=== PATIENT | female | born 1955 | race Caucasian/White ===

== ENCOUNTER 2025-02-02 22:02 | Inpatient (IN) ==
--- NOTE | 2025-02-02 23:20 | Emergency Department Note ---
Impression & Plan Aspiration into respiratory tract, Cough, Cerebral palsy ED Provider Note CHIEF COMPLAINT: Possible aspiration, shortness of breath HISTORY OF PRESENT ILLNESS: This 69-year-old female patient with past medical history of cerebral palsy presents to the emergency department With complaints of coughing up white sputum per fci staff at the [facility]. The patient suffers from cerebral palsy and they are concerned that she may have aspirated. There is no clear history of vomiting. Patient is nonverbal and much of the report is obtained from nursing staff through EMS. REVIEW OF SYSTEMS: Unable to obtain a full review of systems secondary to the patient's mental status/Nonverbal state. ALLERGIES: see below MEDICATIONS: see below PMH: see below SOCIAL HISTORY: see below DDx: Pneumonia, aspiration, congestive heart failure, cardiac arrhythmia, viral syndrome among others. PHYSICAL EXAM: Vital signs reviewed. General: Chronically ill-appearing 69-year-old female HEENT: No scleral icterus, PERRLA, neck supple. Atraumatic. on nasal cannula oxygen. Drooling Cardiovascular: Regular rate and rhythm, no extra sounds. Pulmonary: Clear to auscultation bilaterally, normal work of breathing. Abdomen: Soft, nontender, nondistended, positive bowel sounds. Musculoskeletal: Atraumatic, no peripheral edema. Neurologic: Patient awake alert and oriented x 3, speech is clear Skin: Warm, dry, no rash EMERGENCY DEPARTMENT COURSE/MDM: this patient was evaluated and appeared to be in no significant distress. She was requiring some nasal cannula oxygen to maintain her oxygen saturations. She is nonverbal and additional history taking is difficult. Records sent with the patient were reviewed. IV access was obtained and laboratory work was drawn. Patient was placed on the school bus monitor noted to be in normal sinus rhythm. Chest x-ray reveals no evidence of acute cardiopulmonary process. Patient has noted to have an elevated WBC. Blood cultures were obtained and patient was hydrated with normal saline solution, given IV Zosyn as she has possibly aspirated and does reside in a fci. Case was discussed with the hospitalist service who will evaluate the patient for admission and further management. MONITORING: An order for cardiac monitoring was placed and the patient is noted to be in a normal sinus rhythm at 62 beats per minute. RADIOLOGY: to my interpretation reveals no evidence of acute cardiopulmonary process. EKG: To my interpretation reveals normal sinus rhythm at 86 bpm. QTc of 461. Normal ST segments. No PVC, no PAC. DISPOSITION: admission Past Med/Surg History Problem List (Updated 02/05/25 @ 02:20 by Izabela Ford MD) Cerebral palsy (Acute) Cough (Acute) Aspiration into respiratory tract (Acute) Sepsis Cerebral palsy (Chronic) Bilateral knee pain (Acute) Social History Smoking Status: Unknown if ever smoked Hx Alcohol Use: No (UNKNOWN) Hx Substance Use: No (UNKNOWN) Preferred Language: Hungarian Communication Ability: Effective Workforce Management Coordinator Required: No Beliefs That Will Affect Care: None Current Living Situation: Group Home Feels Safe at Home: Yes Safety Concerns: Feels Safe At This Time Allergies Allergies Allergy/AdvReac Type Severity Reaction Status Date / Time banana Allergy Unknown ON EMBASSY Verified 02/03/25 00:25 OF [facility] MED LIST metformin Allergy Unknown ON EMBASSY Verified 02/03/25 00:25 OF [facility] MED LIST Sulfa (Sulfonamide Allergy Unknown ON EMBASSY Verified 02/03/25 00:25 Antibiotics) OF HEARTHSIDE MED LIST Home Meds Home Medications Medication Instructions Recorded Confirmed acetaminophen 325 mg tablet 650 mg PO Q4H PRN TEMP >101F 02/03/25 02/03/25 (Tylenol) acetaminophen 325 mg tablet 650 mg PO Q6H PRN Pain (Scale 02/03/25 02/03/25 (Tylenol) Score 1-3) aspirin 81 mg tablet,delayed 81 mg PO QAM 02/03/25 02/03/25 release atorvastatin 40 mg tablet 40 mg PO HS 02/03/25 02/03/25 baclofen 10 mg tablet 10 mg PO .BID @ 1200 & 2000 02/03/25 02/03/25 baclofen 10 mg tablet 20 mg PO QAM 02/03/25 02/03/25 bupropion HCl 75 mg tablet 75 mg PO QAM 02/03/25 02/03/25 cholecalciferol (vitamin D3) 25 50 mcg PO DAILY 02/03/25 02/03/25 mcg (1,000 unit) capsule (Vitamin D3) hydroxyzine HCl 10 mg tablet 10 mg PO QAM 02/03/25 02/03/25 levothyroxine 50 mcg tablet 50 mcg PO DAILYBB 02/03/25 02/03/25 lisinopril 5 mg tablet 5 mg PO QAM 02/03/25 02/03/25 magnesium oxide 400 mg PO QAM 02/03/25 02/03/25 melatonin 3 mg tablet 3 mg PO HS 02/03/25 02/03/25 mirtazapine 7.5 mg tablet 7.5 mg PO 02/03/25 02/03/25 omeprazole 20 mg tablet,delayed 20 mg PO QAM 02/03/25 02/03/25 release polyethylene glycol 3350 17 17 g PO DAILY PRN Constipation 02/03/25 02/03/25 gram/dose oral powder (Miralax) sertraline 100 mg tablet (Zoloft) 200 mg PO HS 02/03/25 02/03/25 tamsulosin 0.4 mg capsule (Flomax) 0.4 mg PO QAM 02/03/25 02/03/25 tramadol 50 mg tablet 50 mg PO Q6H PRN Pain (Scale Score 02/03/25 02/03/25 4-10) Results & Data (ED) Vital Signs Vital Signs - 24 hr 02/02/25 22:14 02/02/25 22:38 02/02/25 22:38 Temperature 37.3 C Temperature Source Axillary Pulse Rate 96 H 111 H Respiratory Rate 20 Respiratory Effort / Characteristics Non-Labored Spontaneous Non-Labored Spontaneous Respiratory Depth Normal Normal Respiratory Pattern Regular Regular Blood Pressure 123/87 Blood Pressure Mean 99 Blood Pressure Position Sitting Pulse Oximetry 94 Oxygen Delivery Method Nasal Cannula Nasal Cannula Oxygen Flow Rate 6 6 Sepsis Recent Fever Within 48 Hours No Sepsis New/Unexplained Change in Mental Status No Sepsis Action Taken by Nursing No Action Required Oxygen Flow Rate - Titration 02/02/25 22:38 Temperature Temperature Source Pulse Rate Respiratory Rate Respiratory Effort / Characteristics Respiratory Depth Respiratory Pattern Blood Pressure Blood Pressure Mean Blood Pressure Position Pulse Oximetry Oxygen Delivery Method Nasal Cannula Oxygen Flow Rate Sepsis Recent Fever Within 48 Hours Sepsis New/Unexplained Change in Mental Status Sepsis Action Taken by Nursing Oxygen Flow Rate - Titration 6 Home Medications Current Medication List: was personally reviewed by me Laboratory Data Attestation: I reviewed the patient's lab results. 02/04/25 12:07 02/04/25 08:33 Lab Results 02/02/25 02/02/25 02/03/25 Range/Units 22:11 23:43 01:00 WBC 12.05 H (4.8-10.8) K/ul RBC 4.85 (4.20-5.40) M/uL Hgb 13.0 (12.0-16.0) g/dl Hct 41.8 (37.0-47.0) % MCV 86.2 (80.0-100.0) fL MCH 26.8 (25.0-34.0) pg MCHC 31.1 L (32.0-36.0) g/dL RDW Std Deviation 46.8 H (36.4-46.3) fL RDW Coeff of Silvia 14.8 H (11.5-14.5) % Plt Count (130-400) K/uL MPV Not Reportable Immature Gran % (Auto) 0.7 % Neut % (Auto) 86.5 % Lymph % (Auto) 7.1 % Summers % (Auto) 4.1 % Eos % (Auto) 1.2 % Baso % (Auto) 0.4 % Neut # (Auto) 10.41 H (1.40-6.50) K/uL Lymph # (Auto) 0.86 L (1.20-3.40) K/uL Summers # (Auto) 0.50 (0.11-0.59) K/uL Eos # (Auto) 0.14 (0.00-0.50) K/uL Baso # (Auto) 0.05 (0.00-0.20) K/uL Immature Gran # (Auto) 0.09 (0.01-0.20) K/uL Platelet Estimate Decreased L (Normal) RBC Morphology Unremarkable Sodium 141 (136-145) mmol/L Potassium 5.3 H (3.5-5.1) mmol/L Chloride 106 (98-107) mmol/L Carbon Dioxide 22 (21-32) mmol/L Anion Gap 13 H (3-11) BUN 67 H (6-23) mg/dl Creatinine 1.76 H (0.6-1.2) mg/dl Est Cr Clr Drug Dosing Not Reportable eGFR 31.14 BUN/Creatinine Ratio 38.1 H (10-20) Glucose 153 H (70-99(Fasting)) mg/dl Calcium 9.9 (8.6-10.3) mg/dl Magnesium 2.4 (1.7-2.4) mg/dl Total Bilirubin 0.5 (0.2-1.0) mg/dl AST 58 H (13-39) U/L ALT 53 H (7-52) U/L Alkaline Phosphatase 92 (34-104) U/L Troponin I High Sens 12.6 (0-14) pg/ml Total Protein 8.1 (6.0-8.3) gm/dl Albumin 4.2 (3.4-5.0) gm/dl Globulin 3.9 (2.5-4.0) gm/dl Albumin/Globulin Ratio 1.1 (0.9-2) Procalcitonin 0.16 (0-0.5) ng/ml Urine Color Yellow Urine Appearance Cloudy A (Clear) Urine pH 5.0 (4.5-7.5) Ur Specific [place] 1.015 (1.000-1.030) Urine Protein Negative (Negative) Urine Glucose (UA) Negative (Negative) Urine Ketones Negative (Negative) Urine Blood Negative (Negative) Urine Nitrite Negative (Negative) Urine Bilirubin Negative (Negative) Urine Urobilinogen Negative (Negative) Ur Leukocyte Esterase 3+ H (Negative) Urine WBC (Auto) 0-5 (0-5) /hpf Urine RBC (Auto) 0-2 (0-2) /hpf U Hyaline Cast (Auto) 0-2 (0-2) /lpf U Epithel Cells (Auto) 0-2 (0-2) /hpf Urine Bacteria (Auto) 3+ H (None Seen) Nasal Screen MRSA (PCR) (Negative) Adenovirus (PCR) Not Detected (NotDetected) B. pertussis DNA (PCR) Not Detected (NotDetected) B.parapertussis DNA PCR Not Detected (NotDetected) C. pneumoniae DNA (PCR) Not Detected (NotDetected) Coronavirus OC43 (PCR) Not Detected (NotDetected) Coronavirus HKU1 (PCR) Not Detected (NotDetected) Coronavirus 229E (PCR) Not Detected (NotDetected) SARS-CoV-2 (PCR) Not Detected (NotDetected) Coronavirus NL63 (PCR) Not Detected (NotDetected) Human Metapneumovir PCR Not Detected (NotDetected) Influenza Type A (PCR) Not Detected (NotDetected) Influenza Type B (PCR) Not Detected (NotDetected) M. pneumoniae (PCR) Not Detected (NotDetected) Parainfluenza 1 (PCR) Not Detected (NotDetected) Parainfluenza 2 (PCR) Not Detected (NotDetected) Parainfluenza 3 (PCR) Not Detected (NotDetected) Parainfluenza 4 (PCR) Not Detected (NotDetected) RSV (PCR) Not Detected (NotDetected) Entero/Rhino (PCR) Not Detected (NotDetected) 02/03/25 Range/Units 01:20 WBC (4.8-10.8) K/ul RBC (4.20-5.40) M/uL Hgb (12.0-16.0) g/dl Hct (37.0-47.0) % MCV (80.0-100.0) fL MCH (25.0-34.0) pg MCHC (32.0-36.0) g/dL RDW Std Deviation (36.4-46.3) fL RDW Coeff of Silvia (11.5-14.5) % Plt Count (130-400) K/uL MPV Immature Gran % (Auto) % Neut % (Auto) % Lymph % (Auto) % Summers % (Auto) % Eos % (Auto) % Baso % (Auto) % Neut # (Auto) (1.40-6.50) K/uL Lymph # (Auto) (1.20-3.40) K/uL Summers # (Auto) (0.11-0.59) K/uL Eos # (Auto) (0.00-0.50) K/uL Baso # (Auto) (0.00-0.20) K/uL Immature Gran # (Auto) (0.01-0.20) K/uL Platelet Estimate (Normal) RBC Morphology Sodium (136-145) mmol/L Potassium (3.5-5.1) mmol/L Chloride (98-107) mmol/L Carbon Dioxide (21-32) mmol/L Anion Gap (3-11) BUN (6-23) mg/dl Creatinine (0.6-1.2) mg/dl Est Cr Clr Drug Dosing eGFR BUN/Creatinine Ratio (10-20) Glucose (70-99(Fasting)) mg/dl Calcium (8.6-10.3) mg/dl Magnesium (1.7-2.4) mg/dl Total Bilirubin (0.2-1.0) mg/dl AST (13-39) U/L ALT (7-52) U/L Alkaline Phosphatase (34-104) U/L Troponin I High Sens (0-14) pg/ml Total Protein (6.0-8.3) gm/dl Albumin (3.4-5.0) gm/dl Globulin (2.5-4.0) gm/dl Albumin/Globulin Ratio (0.9-2) Procalcitonin (0-0.5) ng/ml Urine Color Urine Appearance (Clear) Urine pH (4.5-7.5) Ur Specific [place] (1.000-1.030) Urine Protein (Negative) Urine Glucose (UA) (Negative) Urine Ketones (Negative) Urine Blood (Negative) Urine Nitrite (Negative) Urine Bilirubin (Negative) Urine Urobilinogen (Negative) Ur Leukocyte Esterase (Negative) Urine WBC (Auto) (0-5) /hpf Urine RBC (Auto) (0-2) /hpf U Hyaline Cast (Auto) (0-2) /lpf U Epithel Cells (Auto) (0-2) /hpf Urine Bacteria (Auto) (None Seen) Nasal Screen MRSA (PCR) Negative (Negative) Adenovirus (PCR) (NotDetected) B. pertussis DNA (PCR) (NotDetected) B.parapertussis DNA PCR (NotDetected) C. pneumoniae DNA (PCR) (NotDetected) Coronavirus OC43 (PCR) (NotDetected) Coronavirus HKU1 (PCR) (NotDetected) Coronavirus 229E (PCR) (NotDetected) SARS-CoV-2 (PCR) (NotDetected) Coronavirus NL63 (PCR) (NotDetected) Human Metapneumovir PCR (NotDetected) Influenza Type A (PCR) (NotDetected) Influenza Type B (PCR) (NotDetected) M. pneumoniae (PCR) (NotDetected) Parainfluenza 1 (PCR) (NotDetected) Parainfluenza 2 (PCR) (NotDetected) Parainfluenza 3 (PCR) (NotDetected) Parainfluenza 4 (PCR) (NotDetected) RSV (PCR) (NotDetected) Entero/Rhino (PCR) (NotDetected) Administered Medications Acetaminophen (Acetaminophen 500 Mg Tab) 500 mg PO Q6H PRN PRN Reason: fever/pain Stop: 03/05/25 01:50 Last Admin: 02/04/25 22:37 Dose: 500 mg Documented By: Admin: 02/04/25 08:06 Dose: 500 mg Documented By: Admin: 02/03/25 18:45 Dose: 500 mg Documented By: [facility] Admin: 02/03/25 10:27 Dose: 500 mg Documented By: AMS Aspirin (Aspirin 81 Mg Ectab) 81 mg PO [facility] Stop: 03/05/25 08:59 Last Admin: 02/04/25 08:07 Dose: 81 mg Documented By: Admin: 02/03/25 08:04 Dose: 81 mg Documented By: AMS Heparin Sodium (Porcine) (Heparin Sod 5,000 Unit/0.5 Ml Vial) 5,000 units SQ Q8 [facility] Stop: 03/05/25 05:59 Last Admin: 02/04/25 22:37 Dose: 5,000 units Documented By: [facility] Admin: 02/04/25 13:25 Dose: 5,000 units Documented By: Admin: 02/04/25 06:02 Dose: 5,000 units Documented By: [facility] Admin: 02/03/25 20:53 Dose: 5,000 units Documented By: [facility] Admin: 02/03/25 13:40 Dose: 5,000 units Documented By: [facility] Admin: 02/03/25 06:23 Dose: 5,000 units Documented By: CEZAR Hydroxyzine HCl (Hydroxyzine Hcl 10 Mg Tab) 10 mg PO [facility] Stop: 03/06/25 08:59 Last Admin: 02/04/25 09:27 Dose: 10 mg Documented By: MTM Ceftriaxone Sodium (Rocephin) 2,000 mg in 50 mls @ 100 mls/hr IV Q24H [facility] Stop: 02/18/25 12:59 Last Infusion: 02/04/25 14:36 Dose: Infused Documented By: Admin: 02/04/25 13:21 Dose: 100 mls/hr Documented By: MTMildred Insulin Aspart (Insulin Aspart Per Unit Charge) 0 units SC [facility] Stop: 03/05/25 04:55 Last Admin: 02/04/25 20:12 Dose: Not Given Documented By: Admin: 02/04/25 17:36 Dose: Not Given Documented By: Admin: 02/04/25 13:20 Dose: Not Given Documented By: Admin: 02/04/25 09:26 Dose: Not Given Documented By: Admin: 02/03/25 20:52 Dose: Not Given Documented By: Admin: 02/03/25 18:39 Dose: Not Given Documented By: Admin: 02/03/25 13:21 Dose: Not Given Documented By: Admin: 02/03/25 09:42 Dose: 1 units Documented By: JASEN Co-signed By: REMINGTON Admin: 02/03/25 06:39 Dose: Not Given Documented By: CEZAR Co-signed By: BRANDY Lactobacillus Acidophilus (Advanced Probiotic 625 Mg Capsule) 1,250 mg PO DAILY JEAN-PAUL Stop: 03/06/25 08:59 Last Admin: 02/04/25 09:27 Dose: 1,250 mg Documented By: AMI Levothyroxine Sodium (Levothyroxine Sodium 50 Mcg Tablet) 50 mcg PO DAILYBB [facility] Stop: 03/05/25 06:29 Last Admin: 02/04/25 06:02 Dose: 50 mcg Documented By: Admin: 02/03/25 06:23 Dose: 50 mcg Documented By: CEZAR Magnesium Oxide (Magnesium Oxide 400 Mg Tab) [facility] [place] [place] Stop: 03/06/25 08:59 Last Admin: 02/04/25 08:08 Dose: 400 mg Documented By: MTMildred Melatonin (Melatonin 3 Mg Tab) 3 mg PO HS PRN PRN Reason: Sleep Stop: 03/07/25 01:38 Last Admin: 02/05/25 01:44 Dose: 3 mg Documented By: EVELYN Miscellaneous (Carbohydrates For Hypoglycemia ) 15 - 30 gm PO UD PRN PRN Reason: Hypoglycemia Protocol Stop: 03/05/25 04:55 Last Admin: 02/04/25 08:25 Dose: 15 gm Documented By: MTMildred Pantoprazole Sodium (Pantoprazole 40 Mg Tab) [facility] [place] Stop: 03/05/25 08:59 Last Admin: 02/04/25 08:08 Dose: 40 mg Documented By: Admin: 02/03/25 08:04 Dose: 40 mg Documented By: JASEN Tamsulosin HCl (Tamsulosin Hcl 0.4 Mg Cap) 0.4 mg PO [facility] Stop: 03/06/25 08:59 Last Admin: 02/04/25 09:27 Dose: 0.4 mg Documented By: AMI Tramadol HCl (Tramadol Hcl 50 Mg Tablet) 50 mg PO Q6H PRN PRN Reason: Pain (Scale Score 4-10) Stop: 03/05/25 11:38 Last Admin: 02/04/25 18:56 Dose: 50 mg Documented By: Admin: 02/04/25 06:24 Dose: 50 mg Documented By: Admin: 02/03/25 20:53 Dose: 50 mg Documented By: Admin: 02/03/25 14:01 Dose: 50 mg Documented By: JASEN Discontinued Medications Bupropion HCl (Bupropion Hcl 75 Mg Tablet) 75 mg PO [facility] Stop: 03/05/25 08:59 Last Admin: 02/03/25 08:03 Dose: 75 mg Documented By: JASEN Sodium Chloride (Nss) 500 mls @ 999 mls/hr IV .Q31M ONE Stop: 02/03/25 00:01 Last Infusion: 02/03/25 01:25 Dose: Infused Documented By: Admin: 02/02/25 23:48 Dose: 999 mls/hr Documented By: Sodium Chloride (Nss) 1,000 mls @ 150 mls/hr IV .Q6H40M [facility] Stop: 02/04/25 00:14 Last Admin: 02/03/25 02:21 Dose: Not Given Documented By: Piperacillin Sod/Tazobactam Sod (Zosyn) 4.5 gm in 100 mls @ 200 mls/hr IV NOW ONE; Protocol Stop: 02/03/25 01:19 Last Infusion: 02/03/25 02:56 Dose: Infused Documented By: Admin: 02/03/25 02:14 Dose: 200 mls/hr Documented By: Sodium Chloride (Nss) 1,000 mls @ 100 mls/hr IV .Q10H [facility] Stop: 02/03/25 11:47 Last Infusion: 02/03/25 12:04 Dose: Infused Documented By: Admin: 02/03/25 02:14 Dose: 100 mls/hr Documented By: Ampicillin Sodium/Sulbactam Sodium (Unasyn) 3,000 mg in 100 mls @ 200 mls/hr IV Q6H [facility]AN-PAUL Stop: 02/08/25 07:59 Last Infusion: 02/04/25 09:27 Dose: Infused Documented By: Admin: 02/04/25 08:08 Dose: 200 mls/hr Documented By: Infusion: 02/04/25 02:32 Dose: Infused Documented By: Admin: 02/04/25 02:02 Dose: 200 mls/hr Documented By: Infusion: 02/03/25 21:05 Dose: Infused Documented By: Admin: 02/03/25 20:35 Dose: 200 mls/hr Documented By: Infusion: 02/03/25 14:00 Dose: Infused Documented By: Admin: 02/03/25 13:28 Dose: 200 mls/hr Documented By: Infusion: 02/03/25 08:31 Dose: Infused Documented By: Admin: 02/03/25 07:51 Dose: 200 mls/hr Documented By: AMS Sodium Chloride (1/2 Nss) 1,000 mls @ 60 mls/hr IV .[id number] [facility] Stop: 02/04/25 06:54 Last Infusion: 02/04/25 09:26 Dose: Infused Documented By: Admin: 02/03/25 14:30 Dose: 60 mls/hr Documented By: AMS Discharge Plan Visit Data Chief Complaint: Shortness of Breath/Dyspnea Stated Complaint: SOB ED Provider: Izabela Ford Discharge Problem: Aspiration into respiratory tract, Cough, Cerebral palsy Patient Disposition: Admitted As Inpatient Discharge Instructions Interventions: ED Discharge Assessment Last Done: 02/03/25 04:46 Discharge Problem: Aspiration into respiratory tract Qualifiers: Encounter type: initial encounter Qualified Code(s): T17.908A - Unspecified foreign body in respiratory tract, part unspecified causing other injury, initial encounter Cough Qualifiers: Cough type: acute Qualified Code(s): R05.1 - Acute cough Cerebral palsy Qualifiers: Cerebral palsy type: unspecified type Qualified Code(s): G80.9 - Cerebral palsy, unspecified
[2025-02-02] MEDS: SODIUM CHLORIDE 0.9% 500 ML IV ONE (23:48)
[2025-02-02 23:57] LABS: Alanine Aminotransferase 53 U/L (7-52); Albumin Globulin Ratio 1.1 (0.9-2); Albumin Level 4.2 gm/dl (3.4-5.0); Alkaline Phosphatase 92 U/L (34-104); Anion Gap 13 (3-11); Aspartate Aminotransferase 58 U/L (13-39); BUN Creatinine Ratio 38.1 (10-20); Bilirubin,Total 0.5 mg/dl (0.2-1.0); Blood Urea Nitrogen 67 mg/dl (6-23); Calcium 9.9 mg/dl (8.6-10.3); Carbon Dioxide 22 mmol/L (21-32); Chloride 106 mmol/L (98-107); Globulin 3.9 gm/dl (2.5-4.0); Glucose 153 mg/dl (70-99(Fasting)); Magnesium 2.4 mg/dl (1.7-2.4); Potassium 5.3 mmol/L (3.5-5.1); Sodium 141 mmol/L (136-145); Total Protein 8.1 gm/dl (6.0-8.3)
[2025-02-03 00:04] LABS: Troponin I High Sensitivity 12.6 pg/ml (0-14)
[2025-02-03 00:38] LABS: Hematocrit (blood only) 41.8 % (37.0-47.0); Mean Corpuscular Hemoglobin 26.8 pg (25.0-34.0); Mean Corpuscular Hgb Conc 31.1 g/dL (32.0-36.0); Mean Corpuscular Volume 86.2 fL (80.0-100.0); RDW Coefficient of Variation 14.8 % (11.5-14.5); RDW Standard Deviation 46.8 fL (36.4-46.3); Red Blood Count 4.85 M/uL (4.20-5.40); White Blood Count 12.05 K/ul (4.8-10.8)
[2025-02-03 00:47] LABS: Basophils # (auto) 0.05 K/uL (0.00-0.20); Basophils % (auto) 0.4 %; Eosinophils # (auto) 0.14 K/uL (0.00-0.50); Eosinophils % (auto) 1.2 %; Immature Granulocytes # (auto) 0.09 K/uL (0.01-0.20); Immature Granulocytes % (auto) 0.7 %; Lymphocytes # (auto) 0.86 K/uL (1.20-3.40); Lymphocytes % (auto) 7.1 %; Monocytes % (auto) 4.1 %; Neutrophils # (auto) 10.41 K/uL (1.40-6.50); Neutrophils % (auto) 86.5 %; Platelet Estimate Decreased (Normal); RBC Morphology Unremarkable
[2025-02-03 00:52] LABS: Adenovirus PCR Not Detected (NotDetected); Bordetella parapertussis PCR Not Detected (NotDetected); Bordetella pertussis PCR Not Detected (NotDetected); Chlamydia pneumoniae PCR Not Detected (NotDetected); Coronavirus 229E PCR Not Detected (NotDetected); Coronavirus CoV-2 (COVID19)PCR Not Detected (NotDetected); Coronavirus HKU1 PCR Not Detected (NotDetected); Coronavirus NL63 PCR Not Detected (NotDetected); Coronavirus OC43PCR Not Detected (NotDetected); Human Metapneumovirus PCR Not Detected (NotDetected); Influenza A PCR Not Detected (NotDetected); Influenza B PCR Not Detected (NotDetected); Mycoplasma pneumoniae PCR Not Detected (NotDetected); Parainfluenza Virus 1 PCR Not Detected (NotDetected); Parainfluenza Virus 2 PCR Not Detected (NotDetected); Parainfluenza Virus 3 PCR Not Detected (NotDetected); Parainfluenza Virus 4 PCR Not Detected (NotDetected); Respiratory Syncytial VirusPCR Not Detected (NotDetected); Rhinovirus/Enterovirus PCR Not Detected (NotDetected)
[2025-02-03 01:20] LABS: Appearance Urine Cloudy (Clear); Bacteria Urine Automated 3+ (None Seen); Bilirubin Urine Negative (Negative); Blood Urine Negative (Negative); Cast Urine Automated 0-2 /lpf (0-2); Color Urine Yellow; Epithelial Cell Urine Auto 0-2 /hpf (0-2); Glucose Urine UA Negative (Negative); Ketones Urine Negative (Negative); Leukocyte Esterase Urine 3+ (Negative); Nitrite Urine Negative (Negative); Protein Urine Negative (Negative); RBC Urine Automated 0-2 /hpf (0-2); Specific Gravity Urine 1.015 (1.000-1.030); Urobilinogen Urine Negative (Negative); WBC Urine Automated 0-5 /hpf (0-5)
--- NOTE | 2025-02-03 01:27 | XRay Report ---
Exam(s): XR CXR 1 VIEW EXAM: XR Chest, 1 View CLINICAL HISTORY: Reason for exam: Dyspnea. TECHNIQUE: Frontal view of the chest. COMPARISON: No relevant prior studies available. FINDINGS: Lungs: No consolidation. Pleural space: No pleural effusion or pneumothorax. Heart: No cardiomegaly or pulmonary vascular congestion. Bones/joints: No acute fracture. No dislocation. IMPRESSION: No evidence of acute cardiopulmonary disease. Electronically signed by: Greg Tellez M.D. 02/03/25 01:26 AM
--- NOTE | 2025-02-03 01:44 | History & Physical Report ---
Date of Service February 03, 2025 Assessment & Plan (1) Sepsis: Plan: Severe sepsis SIRS plus hypoxemic respiratory failure plus ARF plus encephalopathy Possible aspiration pneumonitis hypertension, stable hyperlipidemia, on statin Rx DM2 on oral medications, well-controlled as of recent hemoglobin A1c of 5.08 June 2024 hypothyroidism, TSH from last year slightly elevated at 5 anxiety/mood disorder hx cerebral palsy ambulatory dysfunction as per records Admit to med/tele CS, Unasyn Aspiration precautions, [employer] eval Baseline UA, monitor creatinine response to IVF Hold lisinopril for now Hold neuropsychotropic medications until mentation back to baseline Update TSH ISS BG goal 110-140, update hemoglobin A1c DVT prophylaxis. Heparin subcu DNR as per directives (POLST form indicates DNR/comfort measures; antibiotic trial acceptable as per document) Total critical time was 40 minutes. Text document was generated using [employer] voice recognition software. It may contain grammatical or spelling errors. Kindly contact undersigned for clarification of any documentation item in question. History of Present Illness Chief Complaint: Low oxygen, possible aspiration as per records Primary Care Provider: Dr. Dawson Higgins History obtained from patient and records. Limited history from patient secondary to disorientation. Medical history significant for hypertension, hyperlipidemia, DM2 on oral medications, hypothyroidism, anxiety/mood disorder, cerebral palsy, urinary retention, ambulatory dysfunction as per records. Patient admitted at [facility] from August 30 to September 04, 2024 for traumatic left patellar/tibia fracture and UTI. Patient discharged to [facility] for a month prior to admission at [facility] last October 2024. Return to patient's home deemed unsafe due to disability. Patient also has cerebral palsy as per report. Patient found to be coughing out white phlegm yesterday. Concern for aspiration as per [facility] staff. O2 sats 80s upon EMS arrival. Patient noted to have noisy respiration. Multiple suctioning attempts prior to ED transport. Zosyn administered at the ER. Patient unable to reply to questions regarding chest pain, SOB, abdominal pain. Medical History as above Surgical History : BTL, leg surgeries Family History : Heart disease, brain tumor Personal/Social history : Non-smoker, no EtOH intake, [facility] resident Allergies Allergy/AdvReac Type Severity Reaction Status Date / Time banana Allergy Unknown ON [facility] Verified 02/03/25 00:25 OF [facility] metformin Allergy Unknown ON [facility] Verified [facility]/03[facility]25 00[facility] Sulfa (Sulfonamide Allergy Unknown ON EMBASSY Verified 02/03/25 00:25 Antibiotics) OF [facility] MED LIST Home Medications Medication Instructions Recorded Confirmed Type acetaminophen 325 mg tablet 650 mg PO Q4H PRN TEMP >101F 02/03/25 02/03/25 History (Tylenol) acetaminophen 325 mg tablet 650 mg PO Q6H PRN Pain (Scale 02/03/25 02/03/25 Hi story (Tylenol) Score 1-3) aspirin 81 mg tablet,delayed 81 mg PO QAM 02/03/25 02/03/25 History release atorvastatin 40 mg tablet 40 mg PO HS 02/03/25 02/03/25 History baclofen 10 mg tablet 10 mg PO .BID @ 1200 & 2000 02/03/25 02/03/25 History baclofen 10 mg tablet 20 mg PO [facility] 02/03/25 02/03/25 History bupropion HCl 75 mg tablet 75 mg PO QA 02/03/25 02/03/25 History cholecalciferol (vitamin D3) 25 50 mcg PO DAILY 02/03/25 02/03/25 History mcg (1,000 unit) capsule (Vitamin D3) hydroxyzine HCl 10 mg tablet 10 mg PO QA 02/03/25 02/03/25 History levothyroxine 50 mcg tablet 50 mcg PO DAILYBB 02/03/25 02/03/25 History lisinopril 5 mg tablet 5 mg PO [facility] 02/03/25 02/03/25 History magnesium oxide 400 mg PO QA 02/03/25 02/03/25 History melatonin 3 mg tablet 3 mg PO 02/03/25 02/03/25 History mirtazapine 7.5 mg tablet 7.5 mg PO HS 02/03/25 02/03/25 History omeprazole 20 mg tablet,delayed 20 mg PO QA 02/03/25 02/03/25 History release polyethylene glycol 3350 17 17 g PO DAILY PRN Constipation 02/03/25 02/03/25 History gram/dose oral powder (Miralax) sertraline 100 mg tablet (Zoloft) 200 mg PO HS 02/03/25 02/03/25 History tamsulosin 0.4 mg capsule (Flomax) 0.4 mg PO QAM 02/03/25 02/03/25 History tramadol 50 mg tablet 50 mg PO Q6H PRN Pain (Scale Score 02/03/25 02/03/25 History 4-10) Past Med/Surg History Problem List (Updated 02/03/25 @ 09:52 by Gucci Mullen MD) Sepsis Cerebral palsy (Chronic) Bilateral knee pain (Acute) Social History Smoking Status: Unknown if ever smoked Hx Alcohol Use: No (UNKNOWN) Hx Substance Use: No (UNKNOWN) Preferred Language: Surinamese Communication Ability: Effective Engine Oiler Required: No Beliefs That Will Affect Care: None Current Living Situation: Long Term Feels Safe at Home: Yes Safety Concerns: Feels Safe At This Time Review of Systems Review of Systems: Could not be reliably obtained secondary to disorientation Physical Exam Physical Exam: GENERAL: Disoriented, no respiratory distress SKIN: Normal color, warm HEENT: Obert palpebral conjunctivae, no ptosis, dry buccal mucosa, nasal cannula in place NECK : Supple, no tenderness CHEST : Decreased breath sounds, scattered expiratory wheezes, no tenderness HEART : RRR, no obvious murmurs ABDOMEN: Some distention, nontender EXTREMITIES : Chronic UE contractures, minimal LE swelling without tenderness, palpable pulses NEUROLOGIC : Disoriented, lateral deviation left eye (? chronicity), no facial asymmetry, gait and stance not assessed Results & Data Results & Data Vital Signs (Past 12 Hours) Vital Signs Temp Pulse Pulse Resp BP BP Pulse Ox 02/03/25 01:17 62 18 149/88 H 100 02/02/25 23:42 100 02/02/25 23:39 77 20 137/82 100 02/02/25 22:38 02/02/25 22:38 37.3 C 111 H 20 123/87 94 02/02/25 22:38 02/02/25 22:14 96 H O2 Del Method O2 Flow Rate 02/03/25 01:17 Nasal Cannula 5 02/02/25 23:42 Nasal Cannula 6 02/02/25 23:39 Nasal Cannula 6 02/02/25 22:38 Nasal Cannula 02/02/25 22:38 Nasal Cannula 6 02/02/25 22:38 Nasal Cannula 6 02/02/25 22:14 Laboratory Results Laboratory Results WBC 12.05 K/ul (4.8-10.8) H 02/02/25 22:11 RBC 4.85 M/uL (4.20-5.40) 02/02/25 22:11 Hgb 13.0 g/dl (12.0-16.0) 02/02/25 22:11 Hct 41.8 % (37.0-47.0) 02/02/25 22:11 MCV 86.2 fL (80.0-100.0) 02/02/25 22:11 MCH 26.8 pg (25.0-34.0) 02/02/25 22:11 MCHC 31.1 g/dL (32.0-36.0) L 02/02/25 22:11 RDW Std Deviation 46.8 fL (36.4-46.3) H 02/02/25 22:11 RDW Coeff of Silvia 14.8 % (11.5-14.5) H 02/02/25 22:11 Plt Count K/uL (130-400) 02/02/25 22:11 MPV Not Reportable 02/02/25 22:11 Immature Gran % (Auto) 0.7 % 02/02/25 22:11 Neut % (Auto) 86.5 % 02/02/25 22:11 Lymph % (Auto) 7.1 % 02/02/25 22:11 [place] % (Auto) 4.1 % 02/02/25 22:11 Eos % (Auto) 1.2 % 02/02/25 22:11 Baso % (Auto) 0.4 % 02/02/25 22:11 Neut # (Auto) 10.41 K/uL (1.40-6.50) H 02/02/25 22:11 Lymph # (Auto) 0.86 K/uL (1.20-3.40) L 02/02/25 22:11 [place] # (Auto) 0.50 K/uL (0.11-0.59) 02/02/25 22:11 Eos # (Auto) 0.14 K/uL (0.00-0.50) 02/02/25 22:11 Baso # (Auto) 0.05 K/uL (0.00-0.20) 02/02/25 22:11 Immature Gran # (Auto) 0.09 K/uL (0.01-0.20) 02/02/25 22:11 Platelet Estimate Decreased (Normal) L 02/02/25 22:11 RBC Morphology Unremarkable 02/02/25 22:11 Sodium 141 mmol/L (136-145) 02/02/25 22:11 Potassium 5.3 mmol/L (3.5-5.1) H 02/02/25 22:11 Chloride 106 mmol/L (98-107) 02/02/25 22:11 Carbon Dioxide 22 mmol/L (21-32) 02/02/25 22:11 Anion Gap 13 (3-11) H 02/02/25 22:11 BUN 67 mg/dl (6-23) H 02/02/25 22:11 Creatinine 1.76 mg/dl (0.6-1.2) H 02/02/25 22:11 Est Cr Clr Drug Dosing Not Reportable 02/02/25 22:11 eGFR 31.14 02/02/25 22:11 BUN/Creatinine Ratio 38.1 (10-20) H 02/02/25 22:11 Glucose 153 mg/dl (70-99(Fasting)) H 02/02/25 22:11 Calcium 9.9 mg/dl (8.6-10.3) 02/02/25 22:11 Magnesium 2.4 mg/dl (1.7-2.4) 02/02/25 22:11 Total Bilirubin 0.5 mg/dl (0.2-1.0) 02/02/25 22:11 AST 58 U/L (13-39) H 02/02/25 22:11 ALT 53 U/L (7-52) H 02/02/25 22:11 Alkaline Phosphatase 92 U/L (34-104) 02/02/25 22:11 Troponin I High Sens 12.6 pg/ml (0-14) 02/02/25 22:11 Total Protein 8.1 gm/dl (6.0-8.3) 02/02/25 22:11 Albumin 4.2 gm/dl (3.4-5.0) 02/02/25 22:11 Globulin 3.9 gm/dl (2.5-4.0) 02/02/25 22:11 Albumin/Globulin Ratio 1.1 (0.9-2) 02/02/25 22:11 Procalcitonin 0.16 ng/ml (0-0.5) 02/02/25 22:11 Adenovirus (PCR) Not Detected (NotDetected) 02/02/25 23:43 B. pertussis DNA (PCR) Not Detected (NotDetected) 02/02/25 23:43 B.parapertussis DNA PCR Not Detected (NotDetected) 02/02/25 23:43 C. pneumoniae DNA (PCR) Not Detected (NotDetected) 02/02/25 23:43 Coronavirus OC43 (PCR) Not Detected (NotDetected) 02/02/25 23:43 Coronavirus HKU1 (PCR) Not Detected (NotDetected) 02/02/25 23:43 Coronavirus 229E (PCR) Not Detected (NotDetected) 02/02/25 23:43 SARS-CoV-2 (PCR) Not Detected (NotDetected) 02/02/25 23:43 Coronavirus NL63 (PCR) Not Detected (NotDetected) 02/02/25 23:43 Human Metapneumovir PCR Not Detected (NotDetected) 02/02/25 23:43 Influenza Type A (PCR) Not Detected (NotDetected) 02/02/25 23:43 Influenza Type B (PCR) Not Detected (NotDetected) 02/02/25 23:43 M. pneumoniae (PCR) Not Detected (NotDetected) 02/02/25 23:43 Parainfluenza 1 (PCR) Not Detected (NotDetected) 02/02/25 23:43 Parainfluenza 2 (PCR) Not Detected (NotDetected) 02/02/25 23:43 Parainfluenza 3 (PCR) Not Detected (NotDetected) 02/02/25 23:43 Parainfluenza 4 (PCR) Not Detected (NotDetected) 02/02/25 23:43 RSV (PCR) Not Detected (NotDetected) 02/02/25 23:43 Entero/Rhino (PCR) Not Detected (NotDetected) 02/02/25 23:43 Impressions Chest X-Ray 02/02/25 23:30 Exam(s): XR CXR 1 VIEW EXAM: XR Chest, 1 View CLINICAL HISTORY: Reason for exam: Dyspnea. TECHNIQUE: Frontal view of the chest. COMPARISON: No relevant prior studies available. FINDINGS: Lungs: No consolidation. Pleural space: No pleural effusion or pneumothorax. Heart: No cardiomegaly or pulmonary vascular congestion. Bones/joints: No acute fracture. No dislocation. IMPRESSION: No evidence of acute cardiopulmonary disease. Electronically signed by: Greg Tellez M.D. 02/03/25 01:26 AM Diagnostic Findings EKG as per my interpretation :Rate 85, NSR, normal axis, T wave abnormality septal leads
[2025-02-03] MEDS ORDERED: PROMETHAZINE 6.25 MG/50.25 ML BAG IV PRN (01:48)
[2025-02-03] MEDS ORDERED: ACETAMINOPHEN 325 MG TAB PO PRN (01:48)
[2025-02-03] MEDS ORDERED: POLYETHYLENE (MIRALAX) 17 GM PACK PO PRN (01:49)
[2025-02-03] MEDS ORDERED: traMADol HCL 50 MG TABLET PO PRN (01:50)
[2025-02-03 02:13] LABS: HCO3 VBG 24 mmol/L; Oxygen Saturation VBG < 60.0 %; PCO2 VBG 52 mmHg (38-50); PO2 VBG 34 mmHg; pH VBG 7.28 (7.36-7.41)
[2025-02-03] MEDS: SODIUM CHLORIDE 0.9% 1,000 ML IV STA (02:14)
[2025-02-03] MEDS: PIPERACILLIN/TAZOBACTAM 4.5 GM/100 ML BAG IV ONE (02:14)
[2025-02-03] MEDS: SODIUM CHLORIDE 0.9% 1,000 ML IV SCH (02:21)
[2025-02-03 02:36] LABS: Alanine Aminotransferase 55 U/L (7-52); Albumin Globulin Ratio 1.1 (0.9-2); Alkaline Phosphatase 83 U/L (34-104); Anion Gap 7 (3-11); Aspartate Aminotransferase 64 U/L (13-39); BUN Creatinine Ratio 40.1 (10-20); Bilirubin,Total 0.5 mg/dl (0.2-1.0); Blood Urea Nitrogen 67 mg/dl (6-23); Calcium 9.4 mg/dl (8.6-10.3); Carbon Dioxide 25 mmol/L (21-32); Chloride 109 mmol/L (98-107); Globulin 3.6 gm/dl (2.5-4.0); Glucose 120 mg/dl (70-99(Fasting)); Potassium 4.9 mmol/L (3.5-5.1); Sodium 141 mmol/L (136-145); Total Protein 7.6 gm/dl (6.0-8.3)
[2025-02-03 02:51] LABS: Thyroid Stimulating Hormone 2.157 uIu/ml (0.300-4.500)
[2025-02-03] MEDS ORDERED: GLUCOSE 10 TAB/TUBE PO PRN (04:56)
[2025-02-03] MEDS ORDERED: GLUCOSE 40% GEL 15 GM TUBE PO PRN (04:56)
[2025-02-03] MEDS ORDERED: GLUCAGON FOR INJ 1 MG VIAL SQ PRN (04:56)
[2025-02-03] MEDS ORDERED: DEXTROSE 50% 50 ML SYRINGE IV PRN (04:56)
--- OUTSIDE RECORDS SUMMARY | 2025-02-03 05:53 | External Medical Summary | Summary of Care ---
Author Name Unknown Organization [facility] Address [address] [place] [address] Phone [phone] Care Team Providers Care Stratigraphy Teacher Name Role Phone Ced Ashby DO Primary Care Provider [phone] Reason for Visit * Reason Onset Date Comments Information 01/08/202501/08 Encounter Details Date Type Department Care Team (Late st Contact Info) Description 01/08/2025 Telephone Family Practice [address] [place] [address] Ced Ashby DO [address] [place] [address] Information (01/08) Allergies Active Allergy Reactions Criticality Noted Date Comments Metformin Diarrhea 03/11/2022 Sulfa Antibiotics 07/01/2000 rash documented as of this encounter (statuses as of 01/09/2025) Medications CALCIUM 500/VITAMIN D 500-125 MG-UNIT PO TABSIndications:Oth er osteoporosis 2 TABLETS DAILY 03/27/20 11 Active CROMOLYN SODIUM 4 % OP SOLNIndications:All ergic conjunctivitis 1-2 drops in both eyes four times a day as needed for itching or allergies 1 Bottle 0 07/30/20 14 Active triamcinolone acetonide (ARISTOCORT) 0.1 % creamIndications:De rmatitis Apply topically to affected area 2 times a day. As directed. 30 g 3 08/31/20 16 Active aspirin enteric coated 81 MG TBEC Take 1 Tab by mouth daily. 100 Tab 3 11/08/19 18 Active fluticasone (FLONASE) 50 MCG/ACT nasal spray Administer 2 Sprays into each nostril daily. 3 Bottle 3 11/08/19 18 Active Glucose Blood STRPIndications:Typ e 2 diabetes mellitus with hemoglobin A1c goal of less than 7.0% ([facility]) Test once a day Dx: E11.9 EasyMax V test strips 100 Strip 5 10/10/20 19 Active Lancets MISCIndications:Typ e 2 diabetes mellitus with hemoglobin A1c goal of less than 7.0% ([facility]) Test once a day dx:E11.9 EasyTouch lancets 300 Each 1 10/10/20 19 Active Acetaminophen ER 650 MG Oral Tablet Extended Release Takes 1-2 tabs as needed 03/11/20 22 Active Prolia 60 MG/ML Subcutaneous Solution Prefilled Syringe (Denosumab) Inject 60 mg under the skin once. Active Albuterol Sulfate HFA 108 (90 Base) MCG/ACT Inhalation Aerosol Solution Inhale 2 Puffs by mouth every 4 hours as needed for Shortness of Breath. 18 g 3 06/24/2023 2:49 PM EDT 06/17/20 23 Active Vitamin D 50 MCG (2000 UT) Oral Tablet Take 2,000 Units by mouth in the morning. Active Sertraline HCl 50 MG Oral Tablet (Zoloft)Indications :Depression with anxiety TAKE ONE TABLET BY MOUTH EVERY MORNING WITH TWO 100 MG TABLETS 100 Tablet 3 11/09/2024 6:28 PM EST 04/27/20 24 Active Sertraline HCl 100 MG Oral Tablet (Zoloft)Indications :Depression with anxiety TAKE TWO TABLETS BY MOUTH EVERY MORNING WITH 50MG TABLET 200 Tablet 3 11/09/2024 6:28 PM EST 04/27/20 24 Active Lisinopril 10 MG Oral Tablet (Prinivil)Indicatio ns:HTN, goal below 140/90 TAKE ONE TABLET BY MOUTH EVERY DAY IN THE MORNING 100 Tablet 3 11/09/2024 6:28 PM EST 04/27/20 24 Active Levocetirizine Dihydrochloride 5 MG Oral TabletIndications:E czema TAKE ONE TABLET BY MOUTH EVERY DAY AT BEDTIME 100 Tablet 3 11/09/2024 6:28 PM EST 04/27/20 24 Active traMADol HCl 50 MG Oral Tablet (Ultram)Indications :Cerebral palsy, unspecified type (HCC),Chronic right shoulder pain TAKE ONE TABLET BY MOUTH TWICE DAILY NEEDED FOR MODERATE PAIN 200 Tablet 08/02/2024 10:43 AM EDT 05/24/20 24 Active Levothyroxine Sodium 50 MCG Oral Tablet (Levoxyl)Indication s:Hypothyroidism due to acquired atrophy of thyroid Take 1 Tablet by mouth daily first thing in the morning. Take on an empty stomach. 100 Tablet 1 10/04/2024 3:12 PM EST 10/02/20 24 Active Omeprazole 20 MG Oral Capsule Delayed Release (PriLOSEC)Indicatio ns:Gastroesophageal reflux disease without esophagitis TAKE ONE CAPSULE BY MOUTH TWICE A DAY 1 HOUR BEFORE MEALS 200 Capsule 1 11/09/2024 6:28 PM EST 11/08/19 25 Active Baclofen 10 MG Oral Tablet (Lioresal)Indicatio ns:Muscle strain of scapular region, left, initial encounter TAKE TWO TABLETS BY MOUTH EVERY MORNING, ONE TABLET IN THE AFTERNOON, AND ONE TABLET IN THE EVENING FOR SPASMS 400 Tablet 1 11/09/2024 6:28 PM EST 11/08/19 25 026 Active Atorvastatin Calcium 40 MG Oral Tablet (Lipitor)Indication s:Dyslipidemia, goal LDL below 160 TAKE ONE TABLET BY MOUTH EVERY DAY 100 Tablet 1 11/09/2024 6:28 PM EST 11/08/19 25 026 Active hydrOXYzine HCl 10 MG Oral Tablet (Atarax)Indications :GOYO (generalized anxiety disorder) TAKE ONE TABLET BY MOUTH EVERY MORNING AND TAKE ONE TABLET BY MOUTH AT BEDTIME 200 Tablet 1 11/15/2024 12:46 PM EST 11/09/19 25 Active documented as of this encounter (statuses as of 01/09/2025) Active Problems Problem Noted Date Diagnosed Date Hypothyroidism due to acquired atrophy of thyroi d 02/11/2023 Degenerative disc disease, cervical 02/11/2023 GOYO (generalized anxiety disorder) 05/18/2022 Chronic right shoulder pain 11/24/2017 Allergic rhinitis 07/10/2015 Type 2 diabetes mellitus wit h hemoglobin A1c goal of less than 7.0% 04/15/2012 Overview (02/25/2016): ICD-10 update of inactive term HTN, goal below 140/90 07/13/2011 Dyslipidemia, goal LDL below 100 02/26/2011 Osteoporosis 02/27/2009 Esophageal reflux 02/27/2009 Depression with anxiety 01/20/2006 CEREBRAL PALSY NOS documented as of this encounter (statuses as of 01/09/2025) Resolved Problems Problem Noted Date Diagnosed Date Resolved Date Atrophy of thyroid (acquired) 02/11/2023 02/11/2023 Dyslipidemia, goal to be determined 10/10/2009 02/26/2011 Overview (10/10/2009): Per Lipid Taxonomy. ADVANCE DIRECTIVE INFORMATION 06/17/2005 09/04/2024 Overview (06/17/2005): Yes, Copy scanned at patient level in the electronic medical record.(Go to Action, Patient File to view) Patient aware they must notify their healthcare provider of changes. Mixed dyslipidemia 06/06/2003 9 Overview (10/10/2009): Per Lipid Taxonomy. Hypothyroidism 07/19/2002 02/11/2023 ACUTE CYSTITIS 03/04/2002 06/03/2007 BACKACHE NOS 03/04/2002 11/24/2017 Dermatitis 11/24/2017 documented as of this encounter (statuses as of 01/09/2025) Immunizations Name Administration Dates Next Due COVID-19 mRNA, LNP-s, No Pre serve, 2-Dose Series ([employer]) 09/08/2021,12/25/2020,12/04/2020 COVID-19, LNP-s, No Preserve , Shlomo-sucrose, Ages 12+ (Pfizer) 06/09/2022 COVID-19, MRNA-LNP, PF, 30 M CG/0.3 mL, 12 YRS AND ABOVE, IM (PFIZER-Comirnaty) 07/25/2024,02/01/2024 Covid-19, Mrna, Lnp-s, Pf, B ivalent, 30 Mcg, IM, 12 yrs and above (Pfizer) 09/08/2022 Pneumococcal Conjugate Vacci ne, 20-valent ([id number]) 02/11/2023 Pneumococcal Polysaccharide PPV23 (Pneumovax) 02/20/2022,02/27/2009 RSV Vac., Bivalent, Perfusio n F, Pf,0.5 Ml (Abrysvo) 06/21/2024 Seasonal Influenza Vac., MDV , IM, 0.5 mL (Fluzone) 07/10/2015,2014,07/24/2013,07/20,07/13/2011,08/28/2010,11/28/2009 Seasonal Influenza, High Dos e, Trivalent, PF, IM (Fluzone HD) 07/25/2024 Seasonal Influenza, PF, 6 M & above, IM , (FluLaval or Fluzone) 09/10/2020,08/29/2019,07/15/2018,07/28 Seasonal Influenza, Quadriva lent Hd (Fluzone Hd) 10/13/2023,09/08/2022,09/08/2022,08/22 Seasonal Influenza, Quadriva lent, No Preserve, IM 07/21/2016 TDAP (age 10 and older)(Boostrix) 05/18/2020 TDAP, Age 7 and older, IM (Adacel) 05/23/2008 Zoster Vaccine Recombinant (Shingrix) 08/21/2020 ,05/18/2020 documented as of this encounter Social History Tobacco Use Types Packs/Day Years Used Date Smoking Tobacco: Never Passive Smoke Exposure: Past Smokeless Tobacco: Never Comments:Passive smoke expos ure as child None currently Alcohol Use Standard Drinks/Week Comments No 0 (1 standard drink = 0.6 oz pur e alcohol) PHQ-2 Answer Date Recorded PHQ Adult Total Score 7 02/01/2024 Hunger Vital Sign Answer Date Recorded Within the past 12 months, y ou worried that your food would run out before you got the money to buy more. Never true 10/13/20 Within the past 12 months, t he food you bought just didn't last and you didn't have money to get more. Never true 10/13/2023 Childcare Answer Date Recorded Do you feel overwhelmed with taking care of a child, family member or friend? No 10/13/2023 Does your family need help f inding childcare? (Household - for ages 0-17 years) Not on file 10/13/2023 Clothing Answer Date Recorded Have you been unable to get clothing when it was really needed? No 10/13/2023 Is your family able to get c lothes or diapers when needed? (Household - for ages 0-17 years) Not on file 10/13/2023 Personal Safety Answer Date Recorded Do you feel unsafe or have concerns for your saf ety? No 10/13/2023 Do you have concerns for you r family's safety? (Household - for ages 0-17 years) Not on file 10/13/2023 Utilities Answer Date Recorded Do you have trouble paying y our heating, water, or electric bill? No 10/13/2023 Is your family able to pay t he heat, water, or electric bill? (Household - for ages 0-17 years) Not on file 10/13/2023 Does your family have access to good internet? (Household - for ages 0-17 years) Not on file 10/13/2023 Employment Status Answer Date Recorded Are you unemployed or without regular income? No 10/13/2023 Does the household have a re lar source of income? (Household - for ages 0-17 years) Not on file 10/13/2023 Social Connections Answer Date Recorded How often do you feel lonely or isolated from th ose around you? Never 10/13/2023 Financial Resource Strain Answer Date R ecorded Do you have any trouble payi ng for your medications, or do you think you might in the future? No 10/13/2023 Does your family have troubl e paying for medicine? (Household - for ages 0-17 years) Not on file 10/13/2023 Transportation Needs Answer Date Record ed READ ONLY Do you have troubl e getting a ride to medical visits or work? Never True 10/13/2023 Does your family have a hard time getting a ride to doctors visits? (Household - for ages 0-17 years) Not on file 10/13/2023 Has lack of transportation k ept you from medical appointments, meetings, work, or from getting things needed for daily living? Check all that apply. (Adult - for ages 18 years and over) Not on file 10/13/2023 Do you (or your family) have trouble finding or paying for a ride (transportation)? (Household - for ages 0-17 years) Not on file 10/13/2023 Housing Stability Answer Date Recorded Do you currently live in a s helter or have no steady place to sleep at night? No 10/13/2023 READ ONLY Do you think you a re at risk of becoming homeless? No 10/13/2023 Does your family worry about paying for your home or becoming homeless? (Household - for ages 0-17 years) Not on file 1 12/14/2022 Are you homeless or worried that you might be in the future? (Adult - for ages 18 years and over) Not on file Are you (or your family) valente eless or worried that you might be in the future? (Household - for ages 0-17 years) Not on file Food Insecurity Answer Date Recorded Do you need food for this week? No 10/13/2023 Are you able to get enough f ood for your family? (Household - for ages 0-17 years) Not on file 10/13/2023 Does your family need food t his week? (Household - for ages 0-17 years) Not on file 10/13/2023 Do you always have enough fo od for your family? (Household - for ages 0-17 years) Not on file 10/13/2023 Comments No Sex and Gender Information Value Date Recorded Sex Assigned at Female 04/28/2019 9:10 AM EDT Legal Sex Female 6:02 AM EST Gender Identity Female 04/28/2019 9:10 AM EDT Sexual Orientation Straight 04/28/2019 9: 10 AM EDT documented as of this encounter Miscellaneous Notes * Telephone Encounter - Nataliia Galindo LPN - 01/09/2025 1:54 PM EDT Call placed to patient. She states she is in facility for a short time and would like to go home. Advised pt to request to speak to her social service coordinator at the SNF to assist with addressing her concernsand discuss d/c planning. Pt states she will ask to speak to the SW. No further questions at this time. * Telephone Encounter - Julee Boone RT (R) - 01/08/2025 2:10 PM EDT Patients Aung calling regarding Tanika. He states Tanika can be reached on her Cell Phone at: [phone] * Telephone Encounter - Nataliia Galindo LPN - 01/08/2025 12:22 PM EDT Call placed to patient - no answer. Message left to return call to [phone]. * Telephone Encounter - Julee Boone RT (R) - 01/08/2025 11:30 AM EDT Patient calling again asking for return phone call about fci. * Telephone Encounter - Warren Narvaez MED ASSIST - 01/08/2025 9:29 AM EDT Pt called in wanting to speak to a nurse about the [facility] she is at. Pt states "This fci stinks and I need to leave". documented in this encounter Plan of Treatment Health Maintenance Due Date Last Done Comments Hepatitis C Screening 1974 Cologuard 2001 Colonoscopy 2001 Colorectal Cancer Screening 2001 Fecal Occult Blood Test 2001 Sigmoidoscopy 2001 Mammogram 07/19/2013 07/19/2012, 07/02, 05/23/2010, Additional history exists Diabetic Eye Exam 08/12/2023 08/12/2022, , 08/21/2019, Additional history exists HbA1c 12/22/2024 06/21/2024, 01/30, 10/13/2023, Additional history exists COVID-19 Vaccine ( season) 2025 07/25/2024, 02/01/2024, 09/08/2022, Additional history exists Adult Wellness Visit 01/31/2025 02/01/2024, 01/26/20 23 Depression Monitoring 01/31/2025 02/01/2024 Diabetic Foot Exam 01/31/2025 02/01/2024, 0 01/25/2023, 02/20/2022, Additional history exists Albumin/Creatinine Ratio 02/07/2025 024, 06/09/2022, 07/03/2021, Additional history exists GFR 06/21/2025 06/21/2024, 04/0 12/2023, 06/17/2023, Additional history exists TSH 06/21/2025 06/21/2024, 01/30, 06/17/2023, Additional history exists DXA Scan 08/16/2026 08/16/2024, 08/01, 07/27/2022, Additional history exists Lipid Panel 06/21/2029 06/21/2024, 06/01, 06/09/2022, Additional history exists DTap/Tdap Vaccines (3 - Td or Tdap) 05/18/2030 05/18/2020, 05/23/2008, 05/27/2000 Pap Smear Discontinued 07/27/2011, 07/03, 05/23/2008, Additional history exists Zoster Vaccines Completed 08/21/2020, 05/18/2020 Pneumococcal Vaccine: 50+ Years Completed 02/11/2023, 02/20/2022, 02/27/2009 VITAMIN D LEVEL ONCE IN A LIFETIME-USE SMARTSET# [id number] Completed 02/01/2024, 01/03/2020, 03/16/2019, Additional history exists Influenza Vaccine (FLU shot) Completed 07/25/2024, 10/13/2023, 09/08/2022, Additional history exists HPV (Gardasil) Vaccine Aged Out No lo nger eligible based on patient's age to complete this topic Hepatitis B Vaccine Aged Out No longe r eligible based on patient's age to complete this topic MENINGOCOCCAL (MENACTRA/MENVEO) Aged Out No longer eligible based on patient's age to complete this topic Meningitis B Vaccine (Bexsero/Trumemba) Aged Out No longer eligible based on patient's age to complete this topic documented as of this encounter Medical Devices Not on filedocumented as of this encounter Care Teams Stratigraphy Teacher Relationship Specialty Start Date End Date Ced Ashby DO [address] [place] [address] PCP - General Internal Medicine 06/20/24 documented as of this encounter
--- OUTSIDE RECORDS SUMMARY | 2025-02-03 05:53 | External Medical Summary | Summary of Care ---
Author Name Unknown Organization [facility] Address [address] [place] [address] Phone [phone] Care Team Providers Care Diagrammer And Seamer Name Role Phone Ced Ashby DO Primary Care Provider [phone] Encounter Details Date Type Department Care Team (Late st Contact Info) Description 01/30/2025 Telephone Family Practice [address] [place] [address] Ced Ashby DO [address] [place] [address] Allergies Active Allergy Reactions Criticality Noted Date Comments Metformin Diarrhea 03/11/2022 Sulfa Antibiotics 07/01/2000 rash documented as of this encounter (statuses as of 01/30/2025) Medications CALCIUM 500/VITAMIN D 500-125 MG-UNIT PO [...] hemoglobin A1c goal of less than 7.0% ([facility]) Test once a day Dx: E11.9 EasyMax V test strips 100 Strip 5 10/10/20 19 Active Lancets MISCIndications:Typ e 2 diabetes mellitus with hemoglobin A1c goal of less than 7.0% ([facility]) Test once a day dx:E11.9 EasyTouch lancets [...] on an empty stomach. 100 Tablet 1 01/12/2025 10:22 AM EDT 10/02/20 24 Active Omeprazole 20 MG Oral [...] as of this encounter (statuses as of 01/30/2025) Active Problems Problem Noted Date Diagnosed Date [...] as of this encounter (statuses as of 01/30/2025) Resolved Problems Problem Noted Date Diagnosed Date [...] as of this encounter (statuses as of 01/30/2025) Immunizations Name Administration Dates Next Due COVID-19 mRNA, LNP-s, No Pre serve, 2-Dose Series ([employer]) 09/08/2021,12/25/2020,12/04/2020 COVID-19, LNP-s, No Preserve , Shlomo-sucrose, Ages 12+ (Pfizer) 06/09/2022 COVID-19, MRNA-LNP, PF, 30 M CG/0.3 mL, 12 YRS AND ABOVE, IM (PFIZER-Comirnaty) 07/25/2024,02/01/2024 Covid-19, Mrna, Lnp-s, Pf, B ivalent, 30 Mcg, IM, 12 yrs and above (Pfizer) 09/08/2022 Pneumococcal Conjugate Vacci ne, 20-valent ([id number]) 02/11/2023 Pneumococcal Polysaccharide PPV23 (Pneumovax) 02/20/2022,02/27/2009 RSV [...] money to buy more. Never true 10/13/20 23 Within the past 12 months, t he [...] encounter Miscellaneous Notes * Telephone Encounter - Dori Carias RN - 01/30/2025 11:02 AM EDT Confirmed pt still admitted at [facility] documented in this encounter Plan of Treatment Upcoming Encounters Date Type Department Care Team (Late st Contact Info) Description 02/27/2025 11:30 AM EDT Office Visit [facility] [address] [place] [address] Delai Oakes CRNP [address] [facility] [place] [address] Health Maintenance Due Date Last Done Comments [...] 07/03/2021, Additional history exists GFR 06/21/2025 06/21/2024, 0412/2023, 06/17/2023, Additional history exists TSH 06/21/2025 06/21/2024, [...] D LEVEL ONCE IN A LIFETIME-USE SMARTSET# [id number] Completed 02/01/2024, 01/03/2020, 03/16/2019, Additional history exists [...] filedocumented as of this encounter Care Teams Diagrammer And Seamer Relationship Specialty Start Date End Date Ced Ashby DO [address] [place] [address] PCP - General Internal Medicine 06/20/24 documented as of this encounter
--- OUTSIDE RECORDS SUMMARY | 2025-02-03 05:53 | External Medical Summary | Summary of Care ---
Author Name Unknown Organization [facility] Address [address] [place] [address] Phone [phone] Care Team Providers Care Pump Machine Operator Name Role Phone Ced Ashby DO Primary Care Provider [phone] Encounter Details Date Type Department Care Team (Late st Contact Info) Description 01/17/2025 Telephone Family Practice [address] [facility] [place] [address] [place] [address] Ced Ashby DO [address] [place] [address] Allergies Active Allergy Reactions Criticality Noted Date Comments Metformin Diarrhea 03/11/2022 Sulfa Antibiotics 07/01/2000 rash documented as of this encounter (statuses as of 01/17/2025) Medications CALCIUM 500/VITAMIN D 500-125 MG-UNIT PO [...] hemoglobin A1c goal of less than 7.0% ([facility]) Test once a day Dx: E11.9 EasyMax V test strips 100 Strip 5 10/10/20 19 Active Lancets MISCIndications:Typ e 2 diabetes mellitus with hemoglobin A1c goal of less than 7.0% ([facility]) Test once a day dx:E11.9 EasyTouch lancets [...] as of this encounter (statuses as of 01/17/2025) Active Problems Problem Noted Date Diagnosed Date [...] as of this encounter (statuses as of 01/17/2025) Resolved Problems Problem Noted Date Diagnosed Date [...] as of this encounter (statuses as of 01/17/2025) Immunizations Name Administration Dates Next Due COVID-19 mRNA, LNP-s, No Pre serve, 2-Dose Series ([employer]) 09/08/2021,12/25/2020,12/04/2020 COVID-19, LNP-s, No Preserve , Shlomo-sucrose, Ages 12+ (Pfizer) 06/09/2022 COVID-19, MRNA-LNP, PF, 30 M CG/0.3 mL, 12 YRS AND ABOVE, IM (PFIZER-Comirnaty) 07/25/2024,02/01/2024 Covid-19, Mrna, Lnp-s, Pf, B ivalent, 30 Mcg, IM, 12 yrs and above ([employer]igo) 09/08/2022 Pneumococcal Conjugate Vacci ne, 20-valent ([id number]) 02/11/2023 Pneumococcal Polysaccharide PPV23 (Pneumovax) 02/20/2022,02/27/2009 RSV [...] 10/13/2023 Does the household have a re gular source of income? (Household - for ages [...] Telephone Encounter - Dori Carias RN - 01/17/2025 2:41 PM EDT Confirmed pt is still admitted at [facility] documented in this encounter Plan of Treatment Health Maintenance Due Date Last Done Comments Hepatitis C Screening 1974 Cologuard 2001 Colonoscopy 2001 Colorectal Cancer Screening 2001 Fecal Occult Blood Test 2001 Sigmoidoscopy 2001 Mammogram 07/19/2013 07/19/2012, 07/02, 05/23/2010, Additional history exists Diabetic Eye Exam 08/12/2023 08/12/2022, , 08/21/2019, Additional history exists HbA1c 12/22/2024 06/21/2024, 041 , 10/13/2023, Additional history exists COVID-19 Vaccine ( [...] D LEVEL ONCE IN A LIFETIME-USE SMARTSET# [id number] Completed 02/01/2024, 01/03/2020, 03/16/2019, Additional history exists [...] filedocumented as of this encounter Care Teams Pump Machine Operator Relationship Specialty Start Date End Date Ced Ashby DO [address] [place] [address] PCP - General Internal Medicine 06/20/24 documented as of this encounter
--- OUTSIDE RECORDS SUMMARY | 2025-02-03 05:53 | External Medical Summary | Summary of Care ---
Author Name Unknown Organization [facility] Address [address] [place] [address] Phone [phone] Care Team Providers Care Exercise Physiologist Name Role Phone Ced Ashby DO Primary Care Provider [phone] Encounter Details Date Type Department Care Team (Late st Contact Info) Description 01/23/2025 Telephone Family Practice [address], [place] [address] [place] [address] Ced Ashby DO [address] [place] [address] Allergies Active Allergy Reactions Criticality Noted Date Comments Metformin Diarrhea 03/11/2022 Sulfa Antibiotics 07/01/2000 rash documented as of this encounter (statuses as of 01/23/2025) Medications CALCIUM 500/VITAMIN D 500-125 MG-UNIT PO [...] hemoglobin A1c goal of less than 7.0% ([facility]) Test once a day Dx: E11.9 EasyMax V test strips 100 Strip 5 10/10/20 19 Active Lancets MISCIndications:Typ e 2 diabetes mellitus with hemoglobin A1c goal of less than 7.0% ([facility]) Test once a day dx:E11.9 EasyTouch [...] as of this encounter (statuses as of 01/23/2025) Active Problems Problem Noted Date Diagnosed Date [...] as of this encounter (statuses as of 01/23/2025) Resolved Problems Problem Noted Date Diagnosed Date [...] as of this encounter (statuses as of 01/23/2025) Immunizations Name Administration Dates Next Due COVID-19 mRNA, LNP-s, No Pre serve, 2-Dose Series ([employer]) 09/08/2021,12/25/2020,12/04/2020 COVID-19, LNP-s, No Preserve , Shlomo-sucrose, Ages 12+ (Pfizer) 06/09/2022 COVID-19, MRNA-LNP, PF, 30 M CG/0.3 mL, 12 YRS AND ABOVE, IM (PFIZER-Comirnaty) 07/25/2024,02/01/2024 Covid-19, Mrna, Lnp-s, Pf, B ivalent, 30 Mcg, IM, 12 yrs and above (Pfizer) 09/08/2022 Pneumococcal Conjugate Vacci ne, 20-valent ([id number]) 02/11/2023 Pneumococcal Polysaccharide PPV23 (Pneumovax) 02/20/2022,02/27/2009 RSV [...] Telephone Encounter - Dori Carias RN - 01/23/2025 12:10 PM EDT Confirmed pt is still admitted at [facility]. documented in this encounter Plan of Treatment [...] exists Adult Wellness Visit 01/31/2025 02/01/2024, 01/26/20 Depression Monitoring 01/31/2025 02/01/2024 Diabetic Foot Exam [...] D LEVEL ONCE IN A LIFETIME-USE SMARTSET# [id number] Completed 02/01/2024, 01/03/2020, 03/16/2019, Additional history exists [...] filedocumented as of this encounter Care Teams Exercise Physiologist Relationship Specialty Start Date End Date Ced Ashby DO [address] [place] [address] PCP - General Internal Medicine 06/20/24 documented as of this encounter
--- OUTSIDE RECORDS SUMMARY | 2025-02-03 05:53 | External Medical Summary | Summary of Care ---
Author Name Unknown Organization [facility] Address [address] [place] [address] Phone [phone] Care Team Providers Care Bridge Crane Operator Name Role Phone Ced Ashby DO Primary Care Provider [phone] Reason for Visit * Reason Onset Date Comments Information 01/08/202501/08 Encounter Details Date Type Department Care Team (Late st Contact Info) Description 01/08/2025 Telephone Family Practice [address] [place] [address] [place] [address] Ced Ashby DO [address] [place] [address] Information (01/08) Allergies Active Allergy [...] hemoglobin A1c goal of less than 7.0% ([facility]) Test once a day Dx: E11.9 EasyMax V test strips 100 Strip 5 10/10/20 19 Active Lancets MISCIndications:Typ e 2 diabetes mellitus with hemoglobin A1c goal of less than 7.0% ([facility]) Test once a day dx:E11.9 [...] healthcare provider of changes. Mixed dyslipidemia 06/06/2003 Overview (10/10/2009): Per Lipid Taxonomy. Hypothyroidism 07/19/2002 02/11/2023 ACUTE CYSTITIS 03/04/2002 06/03/2007 BACKACHE NOS 03/04/2002 11/24/2017 Dermatitis 11/24/2017 documented as of this encounter (statuses as of 01/23/2025) Immunizations Name Administration Dates Next Due COVID-19 mRNA, LNP-s, No Pre serve, 2-Dose Series ([employer]) 09/08/2021,12/25/2020,12/04/2020 COVID-19, LNP-s, No Preserve , Shlomo-sucrose, Ages 12+ (Pfizer) 06/09/2022 COVID-19, MRNA-LNP, PF, 30 M CG/0.3 mL, 12 YRS AND ABOVE, IM (PFIZER-Comirnaty) 07/25/2024,02/01/2024 Covid-19, Mrna, Lnp-s, Pf, B ivalent, 30 Mcg, IM, 12 yrs and above (Pfizer) 09/08/2022 Diptheria/Tetanus (Adult) 05/27/2000 Pneumococcal Conjugate Vacci ne, 20-valent ([id number]) 02/11/2023 Pneumococcal Polysaccharide PPV23 (Pneumovax) 02/20/2022,02/27/2009 RSV [...] No 10/13/2023 Does the household have a [facility] source of income? (Household - for ages [...] encounter Miscellaneous Notes * Telephone Encounter - Warren Narvaez MED ASSIST - 01/22/2025 2:18 PM EDT Patient called in wanting to speak to a nurse about the fpc she is at. * Telephone Encounter - Nataliia Galindo LPN - 01/09/2025 1:54 PM EDT Call placed to patient. She states she is in facility for a short time and would like to go home. Advised pt to request to speak to her social director at the SNF to assist with addressing her concernsand discuss d/c planning. Pt states she will ask to speak to the SW. No further questions at this time. * Telephone Encounter - Julee Boone RT (R) - 01/08/2025 2:10 PM EDT Patients Aung calling regarding Tanika. He states Tanika can be reached on her Cell Phone at: [phone] * Telephone Encounter - Nataliia Galindo LPN - 01/08/2025 12:22 PM EDT Call placed to patient - no answer. Message left to return call to [phone]. * Telephone Encounter - Julee Boone RT (R) - 01/08/2025 11:30 AM EDT Patient calling again asking for return phone call about fpc. * Telephone Encounter - Warren Narvaez MED ASSIST - 01/08/2025 9:29 AM EDT Pt called in wanting to speak to a nurse about the fpc she is at. Pt states "This fpc stinks and I need to leave". documented [...] 06/17/2023, Additional history exists TSH 06/21/2025 06/21/2024, 041 , 06/17/2023, Additional history exists DXA Scan 08/16/2026 08/16/2024, 08/01, 07/27/2022, Additional history exists Lipid Panel 06/21/2029 06/21/2024, 06/01, 06/09/2022, Additional history exists DTap/Tdap Vaccines (3 - Td or Tdap) 05/18/2030 05/18/2020, 05/23/2008, 05/27/2000 Pap Smear Discontinued 07/27/2011, 07/03, 05/23/2008, Additional history exists Zoster Vaccines Completed 08/21/2020, 05/18/2020 Pneumococcal Vaccine: 50+ Years Completed 02/11/2023, 02/20/2022, 02/27/2009 VITAMIN D LEVEL ONCE IN A LIFETIME-USE SMARTSET# [id number] Completed 02/01/2024, 01/03/2020, 03/16/2019, Additional history exists [...] filedocumented as of this encounter Care Teams Bridge Crane Operator Relationship Specialty Start Date End Date Ced Ashby DO [address] [place] [address] PCP - General Internal Medicine 06/20/24 documented as of this encounter
--- OUTSIDE RECORDS SUMMARY | 2025-02-03 05:53 | External Medical Summary | Summary of Care ---
Author Name Unknown Organization [facility] Address [address] [place] [address] Phone [phone] Care Team Providers Care Inventory Accountant Name Role Phone Ced Ashby DO Primary Care Provider [phone] Reason for Visit * Reason Onset Date Comments Information 01/08/202501/08 Encounter Details Date Type Department Care Team (Late st Contact Info) Description 01/08/2025 Telephone Family Practice [address] [place] [address] [place] [address] Ced Ashby DO [address] [place] [address] Information (01/08) Allergies Active Allergy Reactions Criticality Noted Date Comments Metformin Diarrhea 03/11/2022 Sulfa Antibiotics 07/01/2000 rash documented as of this encounter (statuses as of 01/24/2025) Medications CALCIUM 500/VITAMIN D 500-125 MG-UNIT PO [...] hemoglobin A1c goal of less than 7.0% ([facility]) Test once a day Dx: E11.9 EasyMax V test strips 100 Strip 5 10/10/20 19 Active Lancets MISCIndications:Typ e 2 diabetes mellitus with hemoglobin A1c goal of less than 7.0% ([facility]) Test once a day dx:E11.9 EasyTouch [...] as of this encounter (statuses as of 01/24/2025) Active Problems Problem Noted Date Diagnosed Date [...] as of this encounter (statuses as of 01/24/2025) Resolved Problems Problem Noted Date Diagnosed Date [...] as of this encounter (statuses as of 01/24/2025) Immunizations Name Administration Dates Next Due COVID-19 mRNA, LNP-s, No Pre serve, 2-Dose Series ([employer]) 09/08/2021,12/25/2020,12/04/2020 COVID-19, LNP-s, No Preserve , Shlomo-sucrose, Ages 12+ (Pfizer) 06/09/2022 COVID-19, MRNA-LNP, PF, 30 M CG/0.3 mL, 12 YRS AND ABOVE, IM (PFIZER-Comirnaty) 07/25/2024,02/01/2024 Covid-19, Mrna, Lnp-s, Pf, B ivalent, 30 Mcg, IM, 12 yrs and above (Pfizer) 09/08/2022 Diptheria/Tetanus (Adult) 05/27/2000 Pneumococcal Conjugate Vacci ne, 20-valent ([id number]) 02/11/2023 Pneumococcal Polysaccharide PPV23 (Pneumovax) 02/20/2022,02/27/2009 RSV [...] No 10/13/2023 Does the household have a [facility] source of income? (Household - for ages [...] Miscellaneous Notes * Telephone Encounter - Dori Anglin LPN - 01/24/2025 2:42 PM EDT Called patient, she currently resides at [facility]. Working on PT, will call when she is discharged to schedule appointment with Dr Ashby. Thank you * Telephone Encounter - Warren Narvaez MED ASSIST - 01/22/2025 2:18 PM EDT Patient called in wanting to speak to a nurse about the longterm she is at. * Telephone Encounter - Nataliia Galindo LPN - 01/09/2025 1:54 PM EDT Call placed to patient. She states she is in facility for a short time and would like to go home. Advised pt to request to speak to her social media assistant at the SNF to assist with addressing her concernsand discuss d/c planning. Pt states she will ask to speak to the SW. No further questions at this time. * Telephone Encounter - Julee Boone RT (R) - 01/08/2025 2:10 PM EDT Patients Aung calling regarding Tanika. He states Tanika can be reached on her Cell Phone at: [phone] * Telephone Encounter - Nataliia Galindo LPN - 01/08/2025 12:22 PM EDT Call placed to patient - no answer. Message left to return call to [phone]. * Telephone Encounter - Julee Boone RT (R) - 01/08/2025 11:30 AM EDT Patient calling again asking for return phone call about longterm. * Telephone Encounter - Warren Narvaez MED ASSIST - 01/08/2025 9:29 AM EDT Pt called in wanting to speak to a nurse about the longterm she is at. Pt states "This longterm stinks and I need to leave". documented [...] D LEVEL ONCE IN A LIFETIME-USE SMARTSET# [id number] Completed 02/01/2024, 01/03/2020, 03/16/2019, Additional history exists [...] filedocumented as of this encounter Care Teams Inventory Accountant Relationship Specialty Start Date End Date Ced Ashby DO [address] [place] [address] PCP - General Internal Medicine 06/20/24 documented as of this encounter
--- OUTSIDE RECORDS SUMMARY | 2025-02-03 05:53 | External Medical Summary | Summary of Care ---
Author Name Unknown Organization [facility] Address [address] [place] [address] Phone [phone] Care Team Providers Care Technician Preventative Medicine Name Role Phone Ced Ashby DO Primary Care Provider [phone] Reason for Visit * Reason Onset Date Comments Advice 12/12/2024 Encounter Details Date Type Department Care Team (Late st Contact Info) Description 12/12/2024 Telephone Family Practice [address] [place] [address] [place] [address] Ced Ashby DO [address] [place], [place] [id number] Advice Allergies Active Allergy Reactions Criticality Noted Date Comments Metformin Diarrhea 03/11/2022 Sulfa Antibiotics 07/01/2000 rash documented as of this encounter (statuses as of 12/13/2024) Medications CALCIUM 500/VITAMIN D 500-125 MG-UNIT PO [...] goal of less than 7.0% ([facility]) Test once a day Dx: E11.9 EasyMax V test strips 100 Strip 5 10/10/20 19 Active Lancets MISCIndications:Typ e 2 diabetes mellitus with hemoglobin A1c goal of less than 7.0% ([facility]) Test once a day dx:E11.9 EasyTouch lancets [...] as of this encounter (statuses as of 12/13/2024) Active Problems Problem Noted Date Diagnosed Date [...] as of this encounter (statuses as of 12/13/2024) Resolved Problems Problem Noted Date Diagnosed Date [...] as of this encounter (statuses as of 12/13/2024) Immunizations Name Administration Dates Next Due COVID-19 mRNA, LNP-s, No Pre serve, 2-Dose Series ([employer]) 09/08/2021,12/25/2020,12/04/2020 COVID-19, LNP-s, No Preserve , Shlomo-sucrose, Ages 12+ (Pfizer) 06/09/2022 COVID-19, MRNA-LNP, PF, 30 M CG/0.3 mL, 12 YRS AND ABOVE, IM (PFIZER-Comirnaty) 07/25/2024,02/01/2024 Covid-19, Mrna, Lnp-s, Pf, B ivalent, 30 Mcg, IM, 12 yrs and above (Pfizer) 09/08/2022 Pneumococcal Conjugate Vacci ne, 20-valent ([id number]) 02/11/2023 Pneumococcal Polysaccharide PPV23 (Pneumovax) 02/20/2022,02/27/2009 RSV [...] encounter Miscellaneous Notes * Telephone Encounter - Ced Ashby DO - 12/12/2024 3:47 PM EST Noted. * Telephone Encounter - Dori Anglin LPN - 12/12/2024 3:24 PM EST Patient remains at the [facility], she would like to go home. Advised to discuss with nephrology social worker. Patient is aware and will comply. Thank you * Telephone Encounter - Ginna Rodriguez LPN - 12/12/2024 8:33 AM EST Pt's spouse Aung calling in. States that Tanika asked him to have Dori call her. He did not know any details - does not know what this about, but she wanted to speak to Dori only. Her cell phone number is [phone]. Thanks! documented in this encounter Plan of Treatment Health Maintenance Due Date Last Done Comments Hepatitis C Screening 1974 Cologuard 2001 Colonoscopy 2001 Colorectal Cancer Screening 2001 Fecal Occult Blood Test 2001 Sigmoidoscopy 2001 Mammogram 07/19/2013 07/19/2012, 07/02, 05/23/2010, Additional history exists Diabetic Eye Exam 08/12/2023 08/12/2022, , 08/21/2019, Additional history exists HbA1c 12/22/2024 06/21/2024, 01/30, 10/13/2023, Additional history exists Adult Wellness Visit 01/31/2025 [...] D LEVEL ONCE IN A LIFETIME-USE SMARTSET# [id number] Completed 02/01/2024, 01/03/2020, 03/16/2019, Additional history exists COVID-19 Vaccine Completed 07/25/2024, 12/2023, 09/08/2022, Additional history exists Influenza Vaccine (FLU shot) [...] filedocumented as of this encounter Care Teams Technician Preventative Medicine Relationship Specialty Start Date End Date Ced Ashby DO [address] [place] [address] PCP - General Internal Medicine 06/20/24 documented as of this encounter
--- OUTSIDE RECORDS SUMMARY | 2025-02-03 05:53 | External Medical Summary | Summary of Care ---
Author Name Unknown Organization [facility] Address [address] [place] [address] Phone [phone] Care Team Providers Care Lay Out Drafter Name Role Phone Ced Ashby DO Primary Care Provider [phone] Reason for Visit * Reason Onset Date Comments [facility]: Screening 01/19/2025 Encounter Details Date Type Department Care Team (Late st Contact Info) Description 01/19/2025 Telephone [facility], [facility] [address] [facility] [place] [address] Mireya Chong LPN [address] [place] [address] [facility]: Screening Allergies Active Allergy Reactions Criticality Noted Date Comments Metformin Diarrhea 03/11/2022 Sulfa Antibiotics 07/01/2000 rash documented as of this encounter (statuses as of 01/19/2025) Medications CALCIUM 500/VITAMIN D 500-125 MG-UNIT PO [...] than 7.0% ([facility]) Test once a day Dx: E11.9 EasyMax [...] as of this encounter (statuses as of 01/19/2025) Active Problems Problem Noted Date Diagnosed Date [...] as of this encounter (statuses as of 01/19/2025) Resolved Problems Problem Noted Date Diagnosed Date [...] as of this encounter (statuses as of 01/19/2025) Immunizations Name Administration Dates Next Due COVID-19 mRNA, LNP-s, No Pre serve, 2-Dose Series ([employer]) 09/08/2021,12/25/2020,12/04/2020 COVID-19, LNP-s, No Preserve , Shlomo-sucrose, Ages 12+ (Pfizer) 06/09/2022 COVID-19, MRNA-LNP, PF, 30 M CG/0.3 mL, 12 YRS AND ABOVE, IM ([employer]-Comirnat) 07/25/2024,02/01/2024 Covid-19, Mrna, Lnp-s, Pf, B ivalent, 30 Mcg, IM, 12 yrs and above (Pfizer) 09/08/2022 Pneumococcal Conjugate Vacci ne, 20-valent ([id number]) 02/11/2023 Pneumococcal Polysaccharide PPV23 (Pneumovax) 02/20/2022,02/27/2009 RSV [...] encounter Miscellaneous Notes * Telephone Encounter - Mierya Chong LPN - 01/19/2025 3:19 PM EDT Tanika Soares was referred as a potential candidate for enrollment for [facility]. A review of this chart was completed and: Tanika does not meet criteria for enrollment into [facility]. Referral Source: Monthly Proactive Eligibility List Criteria for Ineligibility: Not Located in Service Area Referring care team was notified via : [employer] communication Patient does not have 6 or more chronic conditions documented in this encounter Plan of Treatment Health Maintenance Due Date Last Done Comments Hepatitis C Screening 1974 Cologuard 2001 Colonoscopy 2001 Colorectal Cancer Screening 2001 Fecal Occult Blood Test 2001 Sigmoidoscopy 2001 Mammogram 07/19/2013 07/19/2012, 07/02, 05/23/2010, Additional history exists Diabetic Eye Exam 08/12/2023 08/12/2022, , 08/21/2019, Additional history exists HbA1c 12/22/2024 06/21/2024, 04, 10/13/2023, Additional history exists COVID-19 Vaccine ( [...] D LEVEL ONCE IN A LIFETIME-USE SMARTSET# [id number] Completed 02/01/2024, 01/03/2020, 03/16/2019, Additional history exists [...] filedocumented as of this encounter Care Teams Lay Out Drafter Relationship Specialty Start Date End Date Ced Ashby DO [address] [place] [address] PCP - General Internal Medicine 06/20/24 documented as of this encounter
--- OUTSIDE RECORDS SUMMARY | 2025-02-03 05:53 | External Medical Summary | Summary of Care ---
Author Name Unknown Organization [facility] Address [address] [place] [address] Phone [phone] Care Team Providers Care Analytical Clerk Name Role Phone Ced Ashby DO Primary Care Provider [phone] Reason for Visit * Reason Onset Date Comments Information 01/08/202501/08 Encounter Details Date Type Department Care Team (Late st Contact Info) Description 01/08/2025 Telephone Family Practice [address], [place] [address] [place] [address] Ced Ashby DO [address] [place] [address] Information (01/08) Allergies Active Allergy Reactions Criticality Noted Date Comments Metformin Diarrhea 03/11/2022 Sulfa Antibiotics 07/01/2000 rash documented as of this encounter (statuses as of 01/22/2025) Medications CALCIUM 500/VITAMIN D 500-125 MG-UNIT PO [...] hemoglobin A1c goal of less than 7.0% ([facility]) Test once a day Dx: E11.9 EasyMax V test strips 100 Strip 5 10/10/20 19 Active Lancets MISCIndications:Typ e 2 diabetes mellitus with hemoglobin A1c goal of less than 7.0% ([facility]) Test once a day dx:E11.9 EasyTouch lancets [...] as of this encounter (statuses as of 01/22/2025) Active Problems Problem Noted Date Diagnosed Date [...] as of this encounter (statuses as of 01/22/2025) Resolved Problems Problem Noted Date Diagnosed Date [...] as of this encounter (statuses as of 01/22/2025) Immunizations Name Administration Dates Next Due COVID-19 mRNA, LNP-s, No Pre serve, 2-Dose Series ([employer]) 09/08/2021,12/25/2020,12/04/2020 COVID-19, LNP-s, No Preserve , Shlomo-sucrose, Ages 12+ (Pfizer) 06/09/2022 COVID-19, MRNA-LNP, PF, 30 M CG/0.3 mL, 12 YRS AND ABOVE, IM (PFIZER-Comirnaty) 07/25/2024,02/01/2024 Covid-19, Mrna, Lnp-s, Pf, B ivalent, 30 Mcg, IM, 12 yrs and above (Pfizer) 09/08/2022 Diptheria/Tetanus (Adult) 05/27/2000 Pneumococcal Conjugate Vacci ne, 20-valent ([id number]) 02/11/2023 Pneumococcal Polysaccharide PPV23 (Pneumovax) 02/20/2022,02/27/2009 RSV [...] No 10/13/2023 Does the household have a [facility] source of income? (Household - for [...] to speak to a nurse about the half-way she is at. * Telephone Encounter - Nataliia Galindo LPN - 01/09/2025 1:54 PM EDT Call placed to patient. She states she is in facility for a short time and would like to go home. Advised pt to request to speak to her social service agency director at the SNF to assist with addressing her concernsand discuss d/c planning. Pt states she will ask to speak to the SW. No further questions at this time. * Telephone Encounter - Julee Boone RT (R) - 01/08/2025 2:10 PM EDT Patients Aung calling regarding Tanika. He states Tanika can be reached on her Cell Phone at: [phone] * Telephone Encounter - Nataliia Galindo LPN - 01/08/2025 12:22 PM EDT Call placed to patient - no answer. Message left to return call to [phone]. * Telephone Encounter - Julee Boone RT (R) - 01/08/2025 11:30 AM EDT Patient calling again asking for return phone call about half-way. * Telephone Encounter - Warren Narvaez MED ASSIST - 01/08/2025 9:29 AM EDT Pt called in wanting to speak to a nurse about the half-way she is at. Pt states "This half-way stinks and I need to leave". documented [...] D LEVEL ONCE IN A LIFETIME-USE SMARTSET# [id number] Completed 02/01/2024, 01/03/2020, 03/16/2019, Additional history exists [...] filedocumented as of this encounter Care Teams Analytical Clerk Relationship Specialty Start Date End Date Ced Ashby DO [address] [place] [address] PCP - General Internal Medicine 06/20/24 documented as of this encounter
--- OUTSIDE RECORDS SUMMARY | 2025-02-03 05:53 | External Medical Summary | Summary of Care ---
Author Name Unknown Organization [facility] Address [address] [place] [address] Phone [phone] Care Team Providers Care Watch Inspector Final Movement Name Role Phone Ced Ashby DO Primary Care Provider [phone] Reason for Visit * Reason Onset Date Comments FYI 01/08/2025 Encounter Details Date Type Department Care Team (Late st Contact Info) Description 01/08/2025 Telephone Family Practice [address] [place] [address] [place] [address] Ced Ashby DO [address] [place] [address] FYI Allergies Active Allergy Reactions Criticality Noted Date [...] goal of less than 7.0% ([facility]) Test once a day Dx: E11.9 EasyMax V test strips 100 Strip 5 10/10/20 19 Active Lancets MISCIndications:Typ e 2 diabetes mellitus with hemoglobin A1c goal of less than 7.0% ([facility]) Test once a day dx:E11.9 EasyTouch [...] mRNA, LNP-s, No Pre serve, 2-Dose Series ([employer]) 09/08/2021,12/25/2020,12/04/2020 COVID-19, LNP-s, No Preserve , Shlomo-sucrose, Ages 12+ (Pfizer) 06/09/2022 COVID-19, MRNA-LNP, PF, 30 M CG/0.3 mL, 12 YRS AND ABOVE, IM (PFIZER-Comirnaty) 07/25/2024,02/01/2024 Covid-19, Mrna, Lnp-s, Pf, B ivalent, 30 Mcg, IM, 12 yrs and above (Pfizer) 09/08/2022 Pneumococcal Conjugate Vacci ne, 20-valent ([id number]) 02/11/2023 Pneumococcal Polysaccharide PPV23 (Pneumovax) 02/20/2022,02/27/2009 RSV [...] Telephone Encounter - Dori Carias RN - 01/08/2025 4:44 PM EDT Confirmed that pt is still admitted at [facility] documented in this encounter Plan [...] D LEVEL ONCE IN A LIFETIME-USE SMARTSET# [id number] Completed 02/01/2024, 01/03/2020, 03/16/2019, Additional history exists [...] filedocumented as of this encounter Care Teams Watch Inspector Final Movement Relationship Specialty Start Date End Date Ced Ashby DO [address] [facility] [place] [address] PCP - General Internal Medicine 06/20/24 documented as of this encounter
--- OUTSIDE RECORDS SUMMARY | 2025-02-03 05:54 | External Medical Summary | Summary of Care ---
Author Name Unknown Organization [facility] Address [address] [place] [address] Phone [phone] Care Team Providers Care Technical Sme Name Role Phone Tracey Ashby DO Primary Care Provider [phone] Reason for Visit * Reason Comments Medication Refill Encounter Details Date Type Department Care Team (Late st Contact Info) Description 11/09/2024 Refill Family Practice [address], [place] [address] [place] [address] Tracey Ashby DO [address] [place] [address] GOYO (generalized anxiety disorder) Allergies Active Allergy Reactions Criticality Noted Date Comments Metformin Diarrhea 03/11/2022 Sulfa Antibiotics 07/01/2000 rash documented as of this encounter (statuses as of 11/09/2024) Medications CALCIUM 500/VITAMIN D 500-125 MG-UNIT PO [...] hemoglobin A1c goal of less than 7.0% ([facility]) Test once a day Dx: E11.9 EasyMax V test strips 100 Strip 5 10/10/20 19 Active Lancets MISCIndications:Typ e 2 diabetes mellitus with hemoglobin A1c goal of less than 7.0% ([facility]) Test once a day dx:E11.9 [...] for Shortness of Breath. 18 g 3 3 2:49 PM EDT 06/17/20 23 Active Vitamin D 50 MCG (2000 UT) Oral Tablet Take 2,000 Units by mouth in the morning. Active Sertraline HCl 50 MG Oral Tablet (Zoloft)Indications :Depression with anxiety TAKE ONE TABLET BY MOUTH EVERY MORNING WITH TWO 100 MG TABLETS 100 Tablet 3 4 2:22 PM EDT 04/27/20 24 Active Sertraline HCl 100 MG Oral Tablet (Zoloft)Indications :Depression with anxiety TAKE TWO TABLETS BY MOUTH EVERY MORNING WITH 50MG TABLET 200 Tablet 3 4 2:22 PM EDT 04/27/20 24 Active Lisinopril 10 MG Oral Tablet (Prinivil)Indicatio ns:HTN, goal below 140/90 TAKE ONE TABLET BY MOUTH EVERY DAY IN THE MORNING 100 Tablet 3 4 2:22 PM EDT 04/27/20 24 Active Levocetirizine Dihydrochloride 5 MG Oral TabletIndications:E czema TAKE ONE TABLET BY MOUTH EVERY DAY AT BEDTIME 100 Tablet 3 4 2:22 PM EDT 04/27/20 24 Active traMADol HCl 50 MG Oral Tablet (Ultram)Indications :Cerebral palsy, unspecified type (HCC),Chronic right shoulder pain TAKE ONE TABLET BY MOUTH TWICE DAILY NEEDED FOR MODERATE PAIN 200 Tablet 4 10:43 AM EDT 05/24/20 24 Active Levothyroxine Sodium 50 MCG Oral Tablet (Levoxyl)Indication s:Hypothyroidism due to acquired atrophy of thyroid Take 1 Tablet by mouth daily first thing in the morning. Take on an empty stomach. 100 Tablet 1 4 3:12 PM EST 10/02/20 24 Active Omeprazole 20 MG Oral Capsule Delayed Release (PriLOSEC)Indicatio ns:Gastroesophageal reflux disease without esophagitis TAKE ONE CAPSULE BY MOUTH TWICE A DAY 1 HOUR BEFORE MEALS 200 Capsule 1 11/08/19 25 Active Baclofen 10 MG Oral Tablet (Lioresal)Indicatio ns:Muscle strain of scapular region, left, initial encounter TAKE TWO TABLETS BY MOUTH EVERY MORNING, ONE TABLET IN THE AFTERNOON, AND ONE TABLET IN THE EVENING FOR SPASMS 400 Tablet 1 11/08/19 25 026 Active Atorvastatin Calcium 40 MG Oral Tablet (Lipitor)Indication s:Dyslipidemia, goal LDL below 160 TAKE ONE TABLET BY MOUTH EVERY DAY 100 Tablet 1 11/08/19 25 026 Active hydrOXYzine HCl 10 MG Oral Tablet (Atarax)Indications :GOYO (generalized anxiety disorder) TAKE ONE TABLET BY MOUTH EVERY MORNING AND TAKE ONE TABLET BY MOUTH AT BEDTIME 200 Tablet 1 11/09/19 25 Active hydrOXYzine HCl 10 MG Oral Tablet (Atarax)Indications :GOYO (generalized anxiety disorder) TAKE ONE TABLET BY MOUTH EVERY MORNING AND TAKE ONE TABLET BY MOUTH AT BEDTIME 200 Tablet 1 4 2:22 PM EDT 04/28/20 24 025 Discontin ued(Refil l) documented as of this encounter (statuses as of 11/09/2024) Active Problems Problem Noted Date Diagnosed Date [...] as of this encounter (statuses as of 11/09/2024) Resolved Problems Problem Noted Date Diagnosed Date [...] as of this encounter (statuses as of 11/09/2024) Immunizations Name Administration Dates Next Due COVID-19 mRNA, LNP-s, No Pre serve, 2-Dose Series ([employer]) 09/08/2021,12/25/2020,12/04/2020 COVID-19, LNP-s, No Preserve , Shlomo-sucrose, Ages 12+ (Pfizer) 06/09/2022 COVID-19, MRNA-LNP, PF, 30 M CG/0.3 mL, 12 YRS AND ABOVE, IM ([employer]-Comirnat) 07/25/2024,02/01/2024 Covid-19, Mrna, Lnp-s, Pf, B ivalent, 30 Mcg, IM, 12 yrs and above (Zolvers) 09/08/2022 Pneumococcal Conjugate Vacci ne, 20-valent ([id number]) 02/11/2023 Pneumococcal Polysaccharide PPV23 (Pneumovax) 02/20/2022,02/27/2009 RSV [...] No 10/13/2023 Does the household have a [facility] source of income? (Household - for [...] encounter Miscellaneous Notes * Telephone Encounter - Tracey Ashby DO - 11/09/2024 2:40 PM ESTSigned Prescriptions: Disp Refills hydrOXYzine HCl 10 MG Oral Tablet (Atarax) 200 Ta*1 Sig: TAKE ONE TABLET BY MOUTH EVERY MORNING AND TAKE ONE TABLET BY MOUTH AT BEDTIMEAuthorizing Provider: TRACEY ASHBY * Telephone Encounter - Arielle Alicia [facility] - 11/09/2024 2:15 PM ESTPending Prescriptions: Disp Refills hydrOXYzine HCl 10 MG Oral Tablet (Atarax) 200 Ta*1 Sig: TAKE ONE TABLET BY MOUTH EVERY MORNING AND TAKE ONE TABLET BY MOUTH AT BEDTIME * Telephone Encounter - Arielle Alicia CPhT - 11/09/2024 2:13 PM EST Did you pend patient's preferred pharmacy and medication before forwarding?yes Pharmacy: [facility] Pending Prescriptions: Disp Refills hydrOXYzine HCl 10 MG Oral Tablet (Atarax)200 Ta*1 Sig: TAKE ONE TABLET BY MOUTH EVERY MORNING AND TAKE ONE TABLET BY MOUTH AT BEDTIME Last Visit: 07/25/2024 (in office), Visit date not found (telemedicine) Next Visit: Visit date not found If no future appointments scheduled, and last appointment is greater than a year ago, please schedule patient for a follow-up appointment Last date the medication was ordered: 04/28/2024 Is this request for a controlled substance?No Urine Drug Screen:No results found for this or any previous visit. Patient Phone Numbers Labs: Lab Results Component Value Date/Time CREAT 0.9 06/21/2024 10:40 AM CREAT 0.8 05/07/2020 11:02 AM POTASSIUM 4.8 06/21/2024 10:40 AM POTASSIUM 4.2 05/07/2020 11:02 AM TSH 5.11 (H) 06/21/2024 10:40 AM TSH 0.03 (L) 11/12/2020 09:39 AM LDL 103 06/21/2024 10:40 AM LDL 75 05/07/2020 11:02 AM LDL NOT APPLICABLE 05/07/2020 11:02 AM ALT 16 06/21/2024 10:40 AM ALT 22 05/07/2020 11:02 AM HGBA1C 5.8 (H) 06/21/2024 10:40 AM HGBA1C 5.9 (H) 01/22/2021 08:41 AM HGBA1C 6.5 (H) 09/10/2020 10:29 AM documented in this encounter Plan of Treatment Health Maintenance Due Date Last Done Comments Hepatitis C Screening 1974 Cologuard 2001 Colonoscopy 2001 Colorectal Cancer Screening 2001 Fecal Occult Blood Test 2001 Sigmoidoscopy 2001 Mammogram 07/19/2013 07/19/2012, 07/02, 05/23/2010, Additional history exists Diabetic Eye Exam 08/12/2023 08/12/2022, , 08/21/2019, Additional history exists HbA1c 12/22/2024 06/21/2024, 041 , 10/13/2023, Additional history exists Adult Wellness Visit [...] D LEVEL ONCE IN A LIFETIME-USE SMARTSET# [id number] Completed 02/01/2024, 01/03/2020, 03/16/2019, Additional history exists [...] Not on filedocumented as of this encounter Visit Diagnoses Diagnosis GOYO (generalized anxiety disorder) Generalized anxiety disorder documented in this encounter Care Teams Technical Sme Relationship Specialty Start Date End Date Tracey Ashby DO [address] [place] [address] PCP - General Internal Medicine 06/20/24 documented as of this encounter
--- OUTSIDE RECORDS SUMMARY | 2025-02-03 05:54 | External Medical Summary | Summary of Care ---
Author Name Unknown Organization [facility] Address [address] [place] [address] Phone [phone] Care Team Providers Care Multiplex Operator Name Role Phone Ced Ashby DO Primary Care Provider [phone] Encounter Details Date Type Department Care Team (Late st Contact Info) Description 11/17/2024 Telephone Family Practice [address], [place] [address] [place] [address] Ced Ashby DO [address] [place] [address] Allergies Active Allergy Reactions Criticality Noted Date Comments Metformin Diarrhea 03/11/2022 Sulfa Antibiotics 07/01/2000 rash documented as of this encounter (statuses as of 11/17/2024) Medications CALCIUM 500/VITAMIN D 500-125 MG-UNIT PO [...] hemoglobin A1c goal of less than 7.0% ([facility]) Test once a day Dx: E11.9 EasyMax V test strips 100 Strip 5 10/10/20 19 Active Lancets MISCIndications:Typ e 2 diabetes mellitus with hemoglobin A1c goal of less than 7.0% ([facility]) Test once a day dx:E11.9 EasyTouch lancets [...] as of this encounter (statuses as of 11/17/2024) Active Problems Problem Noted Date Diagnosed Date [...] as of this encounter (statuses as of 11/17/2024) Resolved Problems Problem Noted Date Diagnosed Date [...] as of this encounter (statuses as of 11/17/2024) Immunizations Name Administration Dates Next Due COVID-19 mRNA, LNP-s, No Pre serve, 2-Dose Series ([employer]) 09/08/2021,12/25/2020,12/04/2020 COVID-19, LNP-s, No Preserve , Shlomo-sucrose, Ages 12+ (Pfizer) 06/09/2022 COVID-19, MRNA-LNP, PF, 30 M CG/0.3 mL, 12 YRS AND ABOVE, IM (PFIZER-Comirnaty) 07/25/2024,02/01/2024 Covid-19, Mrna, Lnp-s, Pf, B ivalent, 30 Mcg, IM, 12 yrs and above (Pfizer) 09/08/2022 Pneumococcal Conjugate Vacci ne, 20-valent ([id number]) 02/11/2023 Pneumococcal Polysaccharide PPV23 (Pneumovax) 02/20/2022,02/27/2009 RSV [...] Telephone Encounter - Dori Carias RN - 11/17/2024 3:14 PM EST Call to [facility] to see if pt is still admitted at their facility-confirmed she is still there. documented in this encounter Plan of Treatment [...] 06/17/2023, Additional history exists TSH 06/21/2025 06/21/2024, 1 , 06/17/2023, Additional history exists DXA Scan [...] D LEVEL ONCE IN A LIFETIME-USE SMARTSET# [id number] Completed 02/01/2024, 01/03/2020, 03/16/2019, Additional history exists [...] filedocumented as of this encounter Care Teams Multiplex Operator Relationship Specialty Start Date End Date Ced Ashby DO [address] [place] [address] PCP - General Internal Medicine 06/20/24 documented as of this encounter
--- OUTSIDE RECORDS SUMMARY | 2025-02-03 05:54 | External Medical Summary | Summary of Care ---
Author Name Unknown Organization [facility] Address [address] [place] [address] Phone [phone] Care Team Providers Care Keno Terminal Operator Name Role Phone Ced Ashby DO Primary Care Provider [phone] Encounter Details Date Type Department Care Team (Late st Contact Info) Description 10/17/2024 Result Scan Unspecified Department <No scans attached> Allergies Active Allergy Reactions Criticality Noted Date Comments Metformin Diarrhea 03/11/2022 Sulfa Antibiotics 07/01/2000 rash documented as of this encounter (statuses as of 10/20/2024) Medications CALCIUM 500/VITAMIN D 500-125 MG-UNIT PO [...] goal of less than 7.0% ([facility]) Test once a day Dx: E11.9 EasyMax V test strips 100 Strip 5 10/10/20 19 Active Lancets MISCIndications:Typ e 2 diabetes mellitus with hemoglobin A1c goal of less than 7.0% ([facility]) Test once a day dx:E11.9 EasyTouch [...] Units by mouth in the morning. Active Omeprazole 20 MG Oral Capsule Delayed Release (PriLOSEC)Indicatio ns:Gastroesophageal reflux disease without esophagitis TAKE ONE CAPSULE BY MOUTH TWICE A DAY 1 HOUR BEFORE MEALS 200 Capsule 1 08/03/2024 2:22 PM EDT 04/27/20 24 Active Baclofen 10 MG Oral Tablet (Lioresal)Indicatio ns:Muscle strain of scapular region, left, initial encounter TAKE TWO TABLETS BY MOUTH EVERY MORNING, ONE TABLET IN THE AFTERNOON, AND ONE TABLET IN THE EVENING FOR SPASMS 400 Tablet 1 08/03/2024 2:22 PM EDT 04/27/20 24 025 Active Sertraline HCl 50 MG Oral Tablet (Zoloft)Indications :Depression with anxiety TAKE ONE TABLET BY MOUTH EVERY MORNING WITH TWO 100 MG TABLETS 100 Tablet 3 08/03/2024 2:22 PM EDT 04/27/20 24 Active Sertraline HCl 100 MG Oral Tablet (Zoloft)Indications :Depression with anxiety TAKE TWO TABLETS BY MOUTH EVERY MORNING WITH 50MG TABLET 200 Tablet 3 08/03/2024 2:22 PM EDT 04/27/20 24 Active Lisinopril 10 MG Oral Tablet (Prinivil)Indicatio ns:HTN, goal below 140/90 TAKE ONE TABLET BY MOUTH EVERY DAY IN THE MORNING 100 Tablet 3 08/03/2024 2:22 PM EDT 04/27/20 24 Active Atorvastatin Calcium 40 MG Oral Tablet (Lipitor)Indication s:Dyslipidemia, goal LDL below 160 TAKE ONE TABLET BY MOUTH EVERY DAY 100 Tablet 1 08/03/2024 2:22 PM EDT 04/27/20 24 025 Active Levocetirizine Dihydrochloride 5 MG Oral TabletIndications:E czema TAKE ONE TABLET BY MOUTH EVERY DAY AT BEDTIME 100 Tablet 3 08/03/2024 2:22 PM EDT 04/27/20 24 Active hydrOXYzine HCl 10 MG Oral Tablet (Atarax)Indications :GOYO (generalized anxiety disorder) TAKE ONE TABLET BY MOUTH EVERY MORNING AND TAKE ONE TABLET BY MOUTH AT BEDTIME 200 Tablet 1 08/03/2024 2:22 PM EDT 04/28/20 24 Active traMADol HCl 50 MG Oral [...] 10/04/2024 3:12 PM EST 10/02/20 24 Active documented as of this encounter (statuses as of 10/20/2024) Active Problems Problem Noted Date Diagnosed Date [...] as of this encounter (statuses as of 10/20/2024) Resolved Problems Problem Noted Date Diagnosed Date [...] as of this encounter (statuses as of 10/20/2024) Immunizations Name Administration Dates Next Due COVID-19 mRNA, LNP-s, No Pre serve, 2-Dose Series ([employer]) 09/08/2021,12/25/2020,12/04/2020 COVID-19, LNP-s, No Preserve , Shlomo-sucrose, Ages 12+ (Pfizer) 06/09/2022 COVID-19, MRNA-LNP, PF, 30 M CG/0.3 mL, 12 YRS AND ABOVE, IM (PFIZER-Comirnat) 07/25/2024,02/01/2024 Covid-19, Mrna, Lnp-s, Pf, B ivalent, 30 Mcg, IM, 12 yrs and above (Pfizer) 09/08/2022 Pneumococcal Conjugate Vacci ne, 20-valent ([id number]) 02/11/2023 Pneumococcal Polysaccharide PPV23 (Pneumovax) 02/20/2022,02/27/2009 RSV [...] AM EDT documented as of this encounter Plan of Treatment Upcoming Encounters Date Type Department Care Team (Late st Contact Info) Description 02/05/2025 10:00 AM EDT Nurse Only Family Practice [address], [place] [address] [place] [address] Dori Carias, NIKHIL [address] [place] [address] Health Maintenance Due Date Last Done Comments [...] Zoster Vaccines Completed 08/21/2020, 05/18/2020 Pneumococcal Vaccine: 65+ Years Completed 02/11/2023, 02/20/2022, 02/27/2009 VITAMIN D LEVEL ONCE IN A LIFETIME-USE SMARTSET# [id number] Completed 02/01/2024, 01/03/2020, 03/16/2019, Additional history exists [...] Not on filedocumented as of this encounter Procedures Procedure Name Priority Date/Time Associated Diagnosis Comments RADIOLOGY SCANNED RESULT 10/17/2024 documented in this encounter Results * RADIOLOGY SCANNED RESULT (10/17/2024) 10/17/2024 us No Physician Data Unknown DIAGNOSTIC RADIOLOGY S ERVICES Final Result documented in this encounter Care Teams Keno Terminal Operator Relationship Specialty Start Date End Date Ced Ashby DO [address] [place] [address] PCP - General Internal Medicine 06/20/24 documented as of this encounter
--- OUTSIDE RECORDS SUMMARY | 2025-02-03 05:54 | External Medical Summary | Summary of Care ---
Author Name Unknown Organization [facility] Address [address] [place] [address] Phone [phone] Care Team Providers Care Geotechnical Engineer Name Role Phone Ced Ashby DO Primary Care Provider [phone] Reason for Visit * Reason Onset Date Comments Advice 12/11/2024 Encounter Details Date Type Department Care Team (Late st Contact Info) Description 12/11/2024 Telephone Family Practice [address], [place] [address] [place] [address] Ced Ashby DO [address] [place], [place] [id number] Advice Allergies Active Allergy Reactions Criticality Noted Date Comments Metformin Diarrhea 03/11/2022 Sulfa Antibiotics 07/01/2000 rash documented as of this encounter (statuses as of 12/12/2024) Medications CALCIUM 500/VITAMIN D 500-125 MG-UNIT PO [...] hemoglobin A1c goal of less than 7.0% ([facility]) Test once a day Dx: E11.9 EasyMax V test strips 100 Strip 5 10/10/20 19 Active Lancets MISCIndications:Typ e 2 diabetes mellitus with hemoglobin A1c goal of less than 7.0% ([facility]) Test once a day dx:E11.9 EasyTouch lancets [...] as of this encounter (statuses as of 12/12/2024) Active Problems Problem Noted Date Diagnosed Date [...] as of this encounter (statuses as of 12/12/2024) Resolved Problems Problem Noted Date Diagnosed Date [...] as of this encounter (statuses as of 12/12/2024) Immunizations Name Administration Dates Next Due COVID-19 mRNA, LNP-s, No Pre serve, 2-Dose Series ([employer]) 09/08/2021,12/25/2020,12/04/2020 COVID-19, LNP-s, No Preserve , Shlomo-sucrose, Ages 12+ (Pfizer) 06/09/2022 COVID-19, MRNA-LNP, PF, 30 M CG/0.3 mL, 12 YRS AND ABOVE, IM (PFIZER-Comirnaty) 07/25/2024,02/01/2024 Covid-19, Mrna, Lnp-s, Pf, B ivalent, 30 Mcg, IM, 12 yrs and above (Pfizer) 09/08/2022 Pneumococcal Conjugate Vacci ne, 20-valent ([id number]) 02/11/2023 Pneumococcal Polysaccharide PPV23 (Pneumovax) 02/20/2022,02/27/2009 RSV [...] encounter Miscellaneous Notes * Telephone Encounter - Ginna Rodriguez LPN - 12/12/2024 8:32 AM EST Aung aware and verbalized understanding. They have a meeting with Ashley on 12/26. Will discuss. * Telephone Encounter - Gifty Cota RN - 12/11/2024 11:21 AM EST I do not have Aung's phone #. The only thing he can do is speak to the SNF and their staff. Ashley is the CM/rn social services at [facility]. I am unable to do anything in the out patient setting. If he wants to get her transferred somewhere else, he has to initiate it from their staff. Ashley would be able to send referrals to other facilities. If he calls back, please let him know this. Thank you. * Telephone Encounter - Ginna Rodriguez LPN - 12/11/2024 8:33 AM EST Pt's Aung calling in. States he is concerned about pt because she hasn't been getting much PT at [facility]. Pt keeps calling him c/o her care saying they are letting her sit and not doing much PT with her at all. She feels she is getting weaker. I asked if he has spoken to anyone at the SNF and he has not. Sending to for further advice. documented in this encounter Plan of Treatment [...] D LEVEL ONCE IN A LIFETIME-USE SMARTSET# [id number] Completed 02/01/2024, 01/03/2020, 03/16/2019, Additional history exists [...] filedocumented as of this encounter Care Teams Geotechnical Engineer Relationship Specialty Start Date End Date Ced Ashby DO [address] [place] [facility] [place] [address] PCP - General Internal Medicine 06/20/24 documented as of this encounter
--- OUTSIDE RECORDS SUMMARY | 2025-02-03 05:54 | External Medical Summary | Summary of Care ---
Author Name Unknown Organization [facility] Address [address] [place] [address] Phone [phone] Care Team Providers Care Research Engineer Name Role Phone Ced Ashby DO Primary Care Provider [phone] Reason for Visit * Reason Onset Date Comments Pre Cert/Prior Auth 08/10/2024 Prolia - oswaldo ting for pt to ok oop Encounter Details Date Type Department Care Team (Late st Contact Info) Description 08/10/2024 Telephone Rheumatology [facility] [address] [place] [address] Delia Oakes CRNP [address] [place] [address] Pre Cert/Prior Auth (Prolia - waiting for ... Allergies Active Allergy Reactions Criticality Noted Date [...] hemoglobin A1c goal of less than 7.0% ([facility]) Test once a day Dx: E11.9 EasyMax V test strips 100 Strip 5 10/10/20 19 Active Lancets MISCIndications:Typ e 2 diabetes mellitus with hemoglobin A1c goal of less than 7.0% ([facility]) Test once a day dx:E11.9 [...] 1 HOUR BEFORE MEALS 200 Capsule 1 4 2:22 PM EDT 04/27/20 24 Active Baclofen 10 MG Oral Tablet (Lioresal)Indicatio ns:Muscle strain of scapular region, left, initial encounter TAKE TWO TABLETS BY MOUTH EVERY MORNING, ONE TABLET IN THE AFTERNOON, AND ONE TABLET IN THE EVENING FOR SPASMS 400 Tablet 1 4 2:22 PM EDT 04/27/20 24 025 Active [...] 4 2:22 PM EDT 04/27/20 24 Active Atorvastatin Calcium 40 MG Oral Tablet (Lipitor)Indication s:Dyslipidemia, goal LDL below 160 TAKE ONE TABLET BY MOUTH EVERY DAY 100 Tablet 1 4 2:22 PM EDT 04/27/20 24 025 Active Levocetirizine Dihydrochloride 5 MG Oral TabletIndications:E czema TAKE ONE TABLET BY MOUTH EVERY DAY AT BEDTIME 100 Tablet 3 4 2:22 PM EDT 04/27/20 24 Active hydrOXYzine HCl 10 MG Oral Tablet (Atarax)Indications :GOYO (generalized anxiety disorder) TAKE ONE TABLET BY MOUTH EVERY MORNING AND TAKE ONE TABLET BY MOUTH AT BEDTIME 200 Tablet 1 4 2:22 PM EDT 04/28/20 24 Active traMADol [...] an empty stomach. 100 Tablet 1 4 6:40 AM EDT 12/28/19 24 024 Discontin ued(Refil l) documented as of this [...] mRNA, LNP-s, No Pre serve, 2-Dose Series ([employer]) 09/08/2021,12/25/2020,12/04/2020 COVID-19, LNP-s, No Preserve , Shlomo-sucrose, Ages 12+ (Pfizer) 06/09/2022 COVID-19, MRNA-LNP, PF, 30 M CG/0.3 mL, 12 YRS AND ABOVE, IM (PFIZER-Comirnaty) 07/25/2024,02/01/2024 Covid-19, Mrna, Lnp-s, Pf, B ivalent, 30 Mcg, IM, 12 yrs and above (Pfizer) 09/08/2022 Diptheria/Tetanus (Adult) 05/27/2000 Pneumococcal Conjugate Vacci ne, 20-valent ([id number]) 02/11/2023 Pneumococcal Polysaccharide PPV23 (Pneumovax) 02/20/2022,02/27/2009 RSV [...] encounter Miscellaneous Notes * Telephone Encounter - Daisy Cuenca OSA - 10/17/2024 10:53 AM EST LMOM for patient to call to schedule with nurse for prolia. Letter sent. * Telephone Encounter - Daisy Cuenca OSA - 10/11/2024 3:58 PM EST LOMOM for patient to call and schedule appointment with nurse in for prolia. * Telephone Encounter - Tess Burger LPN - 10/11/2024 2:13 PM EST Please call and schedule this patient for an appointment with the [facility] Nurse clinic in for Prolia Thank you! * Telephone Encounter - Tess Burger LPN - 10/11/2024 2:11 PM EST Images from the original note were not included. Daina Cardoza OSA You; Chantelle Fuchs LPN6 hours ago (7:48 AM) VS Just received an email this morning that the patient's financial assistance has been approved. I will call her and let her know after 8 am this morning. * Telephone Encounter - Chantelle Fuchs LPN - 10/09/2024 8:47 AM EST Has the pt returned this form ? * Telephone Encounter - Daina Cardoza OSA - 09/07/2024 4:02 PM EST Application returned first unsigned and then the second time without her spouses income. Mailed letter to patient requesting spouses income. * Telephone Encounter - Tess Burger LPN - 08/16/2024 2:42 PM EDT Pt was given the FA application after her DEXA appt at . Form was explained to her in detail and address was highlighted to mail back all the information. * Telephone Encounter - Daina Cardoza OSA - 08/16/2024 12:53 PM EDT I did try reaching patient but had to leave a VM. She has paid for her Prolia in the past the last one that she had in January she paid for in April and that was $287.17. If patient feels she is unable to pay we can do a financial assistance application for her. We would need need proof of income and the application. I will discuss with her when she returns call. * Telephone Encounter - Tess Burger LPN - 08/16/2024 8:10 AM EDT Pt has an appt today to get prolia. Spoke to pt and she stated that she can not afford the oop costof $305.14 and she has never paid for prolia before. Please call pt and advise if she qualifies forassistance. Thank you! Financial 08/11/2024 9:38 AM Lola Good OSA - Note: Date of Services: 08/16/24 Facility: Rheumatology [facility] Estimate of Services for the following CPT(s): J0897 Prolia Estimated Out of Pocket: $305.14 (20% Coinsurance) Contacted patient: LM for patient to call me back Does patient want to be scheduled? (Y/N) already scheduled Financial Assistance Requested? (Y/N) n/a Financial Assistance Application provided? (Y/N) n/a Sent estimate via: Newformaelyse * Telephone Encounter - Tess Burger LPN - 08/11/2024 2:21 PM EDT Waiting for pt to okay the oop cost * Telephone Encounter - Tess Burger LPN - 08/10/2024 3:02 PM EDT Patient has an upcoming appointment to receive prolia. Please check for a current auth and notify patient of any oop cost. Supervised by Dr. Grant Cooper, getting prolia at Thank you! Labs are WNL for prolia documented in this encounter Plan of Treatment Upcoming Encounters Date Type Department Care Team (Late st Contact Info) Description 02/05/2025 10:00 AM EDT Nurse Only Family Practice [address], [place] [address] [place] [address] Dori Carias, NIKHIL [address] [place] [address] Health Maintenance Due Date Last Done Comments [...] D LEVEL ONCE IN A LIFETIME-USE SMARTSET# [id number] Completed 02/01/2024, 01/03/2020, 03/16/2019, Additional history exists [...] filedocumented as of this encounter Care Teams Research Engineer Relationship Specialty Start Date End Date Ced Ashby DO [address] [facility] [place] [address] PCP - General Internal Medicine 06/20/24 documented as of this encounter
--- OUTSIDE RECORDS SUMMARY | 2025-02-03 05:54 | External Medical Summary | Summary of Care ---
Author Name Unknown Organization [facility] Address [address] [place] [address] Phone [phone] Care Team Providers Care Teacher Kindergarten Name Role Phone Tracey Ashby DO Primary Care Provider [phone] Reason for Visit * Reason Comments Medication Refill Encounter Details Date Type Department Care Team (Late st Contact Info) Description 11/07/2024 Refill Family Practice [address], [place] [address] [place] [address] Tracey Ashby DO [address] [place] [address] Gastroesophageal reflux disease without esophagitis; Muscle strain of scapular region, left, initial encounter; Dyslipidemia, goal LDL below 160 Allergies Active Allergy Reactions Criticality Noted Date Comments Metformin Diarrhea 03/11/2022 Sulfa Antibiotics 07/01/2000 rash documented as of this encounter (statuses as of 11/08/2024) Medications CALCIUM 500/VITAMIN D 500-125 MG-UNIT PO [...] 100 Tablet 1 11/08/19 25 026 Active Omeprazole 20 MG Oral Capsule Delayed Release (PriLOSEC)Indicatio ns:Gastroesophageal reflux disease without esophagitis TAKE ONE CAPSULE BY MOUTH TWICE A DAY 1 HOUR BEFORE MEALS 200 Capsule 1 4 2:22 PM EDT 04/27/20 24 025 Discontin ued(Refil l) Baclofen 10 MG Oral Tablet (Lioresal)Indicatio ns:Muscle strain of scapular region, left, initial encounter TAKE TWO TABLETS BY MOUTH EVERY MORNING, ONE TABLET IN THE AFTERNOON, AND ONE TABLET IN THE EVENING FOR SPASMS 400 Tablet 1 4 2:22 PM EDT 04/27/20 24 025 Discontin ued(Refil l) Atorvastatin Calcium 40 MG Oral Tablet (Lipitor)Indication s:Dyslipidemia, goal LDL below 160 TAKE ONE TABLET BY MOUTH EVERY DAY 100 Tablet 1 4 2:22 PM EDT 04/27/20 025 Discontin ued(Refil l) documented as of this encounter (statuses as of 11/08/2024) Active Problems Problem Noted Date Diagnosed Date [...] as of this encounter (statuses as of 11/08/2024) Resolved Problems Problem Noted Date Diagnosed Date [...] as of this encounter (statuses as of 11/08/2024) Immunizations Name Administration Dates Next Due COVID-19 mRNA, LNP-s, No Pre serve, 2-Dose Series ([facility]) 09/08/2021,12/25/2020,12/04/2020 COVID-19, LNP-s, No Preserve , Shlomo-sucrose, Ages 12+ (Pfizer) 06/09/2022 COVID-19, MRNA-LNP, PF, 30 M CG/0.3 mL, 12 YRS AND ABOVE, IM ([facility]) 07/25/2024,02/01/2024 Covid-19, Mrna, Lnp-s, Pf, B ivalent, 30 Mcg, IM, 12 yrs and above ([facility]) 09/08/2022 Pneumococcal Conjugate Vacci ne, 20-valent ([id number]) 02/11/2023 Pneumococcal Polysaccharide PPV23 (Pneumovax) 02/20/2022,02/27/2009 RSV [...] Telephone Encounter - Tracey Ashby DO - 11/08/2024 12:43 PM ESTSigned Prescriptions: Disp Refills Omeprazole 20 MG Oral Capsule Delayed Rele*200 Ca*1 Sig: TAKE ONE CAPSULE BY MOUTH TWICE A DAY 1 HOUR BEFORE MEALSAuthorizing Provider: TRACEY ASHBY User: KATE KYLE Baclofen 10 MG Oral Tablet (Lioresal) 400 Ta*1 Sig: TAKE TWO TABLETS BY MOUTH EVERY MORNING, ONE TABLET IN THE AFTERNOON, AND ONE TABLET IN THE EVENING FOR SPASMSAuthorizing Provider: TRACEY ASHBY Atorvastatin Calcium 40 MG Oral Tablet (Li*100 Ta*1 Sig: TAKE ONE TABLET BY MOUTH EVERY DAYAuthorizing Provider: TRACEY ASHBY User: KATE KYLE----- * Telephone Encounter - Kate Kyle [facility] - 11/08/2024 8:59 AM ESTPending Prescriptions: Disp Refills Baclofen 10 MG Oral Tablet (Lioresal) 400 Ta*1 Sig: TAKE TWO TABLETS BY MOUTH EVERY MORNING, ONE TABLET IN THE AFTERNOON, AND ONE TABLET IN THE EVENING FOR SPASMS Signed Prescriptions: Disp Refills Omeprazole 20 MG Oral Capsule Delayed Rele*200 Ca*1 Sig: TAKE ONE CAPSULE BY MOUTH TWICE A DA Y 1 HOUR BEFORE MEALS Authorizing Provider: TRACEY ASHBY Ordering User: KATE KYLE Atorvastatin Calcium 40 MG Oral Tablet (Li*100 Ta*1 Sig: TAKE ONE TABLET BY MOUTH EVERY DAY Authorizing Provider: TRACEY ASHBY Ordering User: KATE KYLE * Telephone Encounter - Kate Kyle RPh - 11/08/2024 8:58 AM EST [facility] is currently not authorized to approve refills for the pended medication(s) per refill protocol. Please approve if appropriate. Thanks, Kate Kyle, PharmD Clinical Pharmacist Centralized Clinical Pharmacy Services ([facility]) [phone] 11/08/2024, 8:58 AM * Telephone Encounter - Kate Kyle RPh - 11/08/2024 8:58 AM EST Pending Prescriptions: Disp Refills Omeprazole 20 MG Oral Capsule Delayed Rel*200 Ca*1 Sig: TAKE ONE CAPSULE BY MOUTH TWICE A DAY 1 HOUR BEFORE MEALS Baclofen 10 MG Oral Tablet (Lioresal) 400 Ta*1 Sig: TAKE TWO TABLETS BY MOUTH EVERY MORNING, ONE TABLET IN THE AFTERNOON, AND ONE TABLET IN THE EVENING FOR SPASMS Atorvastatin Calcium 40 MG Oral Tablet (L*100 Ta*1 Sig: TAKE ONE TABLET BY MOUTH EVERY DAY Last Visit: 07/25/2024 (in office), Visit date not found (telemedicine) Next Visit: Visit date not found If no future appointments scheduled, and last appointment is greater than a year ago, please schedule patient for a follow-up appointment Last date the medication was ordered: 04/27/24 [facility] Is this request for a controlled substance? No Urine Drug Screen:No results found for this [...] AM HGBA1C 6.5 (H) 09/10/2020 10:29 AM * Telephone Encounter - Transfer User, Rx Adt - 11/07/2024 12:15 AM ESTPending Prescriptions: Disp Refills Omeprazole 20 MG Oral Capsule Delayed Rele*200 Ca*1 Sig: TAKE ONE CAPSULE BY MOUTH TWICE A DAY 1 HOUR BEFORE MEALS Baclofen 10 MG Oral Tablet (Lioresal) 400 Ta*1 Sig: TAKE TWO TABLETS BY MOUTH EVERY MORNING, ONE TABLET IN THE AFTERNOON, AND ONE TABLET IN THE EVENING FOR SPASMS * Telephone Encounter - Transfer User, Rx Adt - 11/07/2024 12:15 AM ESTPending Prescriptions: Disp Refills Omeprazole 20 MG Oral Capsule Delayed Rele*200 Ca*1 Sig: TAKE ONE CAPSULE BY MOUTH TWICE A DAY 1 HOUR BEFORE MEALS Baclofen 10 MG Oral Tablet (Lioresal) 400 Ta*1 Sig: TAKE TWO TABLETS BY MOUTH EVERY MORNING, ONE TABLET IN THE AFTERNOON, AND ONE TABLET IN THE EVENING FOR SPASMS Atorvastatin Calcium 40 MG O ral Tablet (Li*100 Ta*1 Sig: TAKE ONE TABLET BY MOUTH EVERY DAY documented in this encounter Plan of Treatment Health Maintenance Due Date Last Done Comments Hepatitis C Screening 1974 Cologuard 2001 Colonoscopy 2001 Colorectal Cancer Screening 2001 Fecal Occult Blood Test 2001 Sigmoidoscopy 2001 Mammogram 07/19/2013 07/19/2012, 07/02, 05/23/2010, Additional history exists Diabetic Eye Exam 08/12/2023 08/12/2022, , 08/21/2019, Additional history exists HbA1c 12/22/2024 06/21/2024, 1 , 10/13/2023, Additional history exists Adult Wellness [...] D LEVEL ONCE IN A LIFETIME-USE SMARTSET# [id number] Completed 02/01/2024, 01/03/2020, 03/16/2019, Additional history exists [...] as of this encounter Visit Diagnoses Diagnosis Gastroesophageal reflux disease without esophagitis Esophageal reflux Muscle strain of scapular region, left, initial encounter Dyslipidemia, goal LDL below 160 Other and unspecified hyperlipidemia documented in this encounter Care Teams Teacher Kindergarten Relationship Specialty Start Date End Date Tracey Ashby DO [address] [facility] [place] [place] [address] PCP - General Internal Medicine 06/20/24 documented as of this encounter
--- OUTSIDE RECORDS SUMMARY | 2025-02-03 05:54 | External Medical Summary | Summary of Care ---
Author Name Unknown Organization [facility] Address [address] [place] [address] Phone [phone] Care Team Providers Care Last Chalker Name Role Phone eCd Ashby DO Primary Care Provider [phone] Encounter Details Date Type Department Care Team (Late st Contact Info) Description 11/20/2024 Population Health External Data Unspecified Department Allergies Active Allergy Reactions Criticality Noted Date Comments Metformin Diarrhea 03/11/2022 Sulfa Antibiotics 07/01/2000 rash documented as of this encounter (statuses as of 11/20/2024) Medications CALCIUM 500/VITAMIN D 500-125 MG-UNIT PO [...] hemoglobin A1c goal of less than 7.0% ([facility]) Test once a day Dx: E11.9 EasyMax V test strips 100 Strip 5 10/10/20 19 Active Lancets MISCIndications:Typ e 2 diabetes mellitus with hemoglobin A1c goal of less than 7.0% ([facility]) Test once a day dx:E11.9 EasyTouch lancets [...] as of this encounter (statuses as of 11/20/2024) Active Problems Problem Noted Date Diagnosed Date [...] as of this encounter (statuses as of 11/20/2024) Resolved Problems Problem Noted Date Diagnosed Date [...] as of this encounter (statuses as of 11/20/2024) Immunizations Name Administration Dates Next Due COVID-19 mRNA, LNP-s, No Pre serve, 2-Dose Series ([facility]) 09/08/2021,12/25/2020,12/04/2020 COVID-19, LNP-s, No Preserve , Shlomo-sucrose, Ages 12+ ([employer]) 06/09/2022 COVID-19, MRNA-LNP, PF, 30 M CG/0.3 mL, 12 YRS AND ABOVE, IM ([facility]) 07/25/2024,02/01/2024 Covid-19, Mrna, Lnp-s, Pf, B ivalent, 30 Mcg, IM, 12 yrs and above ([facility]) 09/08/2022 Pneumococcal Conjugate Vacci ne, 20-valent ([id number]) 02/11/2023 Pneumococcal Polysaccharide PPV23 (Pneumovax) 02/20/2022,02/27/2009 RSV [...] as of this encounter Plan of Treatment Health Maintenance [...] 07/03/2021, Additional history exists GFR 06/21/2025 06/21/2024, 040 12/2023, 06/17/2023, Additional history exists TSH 06/21/2025 [...] D LEVEL ONCE IN A LIFETIME-USE SMARTSET# [id number] Completed 02/01/2024, 01/03/2020, 03/16/2019, Additional history exists [...] filedocumented as of this encounter Care Teams Last Chalker Relationship Specialty Start Date End Date Ced Ashby DO [address] [facility] [place] [address] PCP - General Internal Medicine 06/20/24 documented as of this encounter
--- OUTSIDE RECORDS SUMMARY | 2025-02-03 05:55 | External Medical Summary | Summary of Care ---
Author Name Unknown Organization [facility] Address [address] [place] [address] Phone [phone] Care Team Providers Care Auto Parts Clerk Name Role Phone Ced Ashby DO Primary Care Provider Reason for Visit * Reason Onset Date Comments Pre Cert/Prior Auth 08/10/2024 Prolia - oswaldo ting for pt to ok oop Encounter Details Date Type Department Care Team (Late st Contact Info) Description 08/10/2024 Telephone Rheumatology [facility] [address] [place] [address] Delia Oakes CRNP [address] [place] [address] Pre Cert/Prior Auth (Prolia - waiting for ... Allergies Active Allergy Reactions Criticality Noted Date Comments Metformin Diarrhea 03/11/2022 Sulfa Antibiotics 07/01/2000 rash documented as of this encounter (statuses as of 10/17/2024) Medications CALCIUM 500/VITAMIN D 500-125 MG-UNIT PO [...] as of this encounter (statuses as of 10/17/2024) Active Problems Problem Noted Date Diagnosed Date [...] as of this encounter (statuses as of 10/17/2024) Resolved Problems Problem Noted Date Diagnosed Date [...] as of this encounter (statuses as of 10/17/2024) Immunizations Name Administration Dates Next Due COVID-19 mRNA, LNP-s, No Pre serve, 2-Dose Series ([employer]) 09/08/2021,12/25/2020,12/04/2020 COVID-19, LNP-s, No Preserve , Shlomo-sucrose, Ages 12+ (Pfizer) 06/09/2022 COVID-19, MRNA-LNP, PF, 30 M CG/0.3 mL, 12 YRS AND ABOVE, IM (P[employer]ER-Comirnaty) 07/25/2024,02/01/2024 Covid-19, Mrna, Lnp-s, Pf, B ivalent, 30 Mcg, IM, 12 yrs and above (Pfizer) 09/08/2022 Diptheria/Tetanus (Adult) 05/27/2000 Pneumococcal Conjugate Vacci ne, 20-valent ([id number]) 02/11/2023 Pneumococcal Polysaccharide PPV23 (Pneumovax) 02/20/2022,02/27/2009 RSV [...] this patient for an appointment with the [facility] Nurse clinic in for Prolia Thank you! [...] Note: Date of Services: 08/16/24 Facility: Rheumatology [facility] Estimate of Services for the following CPT(s): J0897 Prolia Estimated Out of Pocket: $305.14 (20% Coinsurance) Contacted patient: LM for patient to call me back Does patient want to be scheduled? (Y/N) already scheduled Financial Assistance Requested? (Y/N) n/a Financial Assistance Application provided? (Y/N) n/a Sent estimate via: [email or web address] * Telephone Encounter - Tess Burger LPN [...] EDT Nurse Only Family Practice [address], [place] [address] [place] [address] Dori Carias, NIKHIL [address] [place] [address] Health Maintenance Due Date Last [...] D LEVEL ONCE IN A LIFETIME-USE SMARTSET# [id number] Completed 02/01/2024, 01/03/2020, 03/16/2019, Additional history exists [...] filedocumented as of this encounter Care Teams Auto Parts Clerk Relationship Specialty Start Date End Date Ced Ashby DO [address] [place] [address] PCP - General Internal Medicine 06/20/24 documented as of this encounter
[2025-02-03 06:13] LABS: Basophils # (auto) 0.04 K/uL (0.00-0.20); Basophils % (auto) 0.4 %; Eosinophils # (auto) 0.11 K/uL (0.00-0.50); Hematocrit (blood only) 36.2 % (37.0-47.0); Hemoglobin 10.9 g/dl (12.0-16.0); Immature Granulocytes # (auto) 0.09 K/uL (0.01-0.20); Immature Granulocytes % (auto) 0.8 %; Lymphocytes # (auto) 0.87 K/uL (1.20-3.40); Lymphocytes % (auto) 7.7 %; Mean Corpuscular Hemoglobin 26.5 pg (25.0-34.0); Mean Corpuscular Hgb Conc 30.1 g/dL (32.0-36.0); Mean Corpuscular Volume 88.1 fL (80.0-100.0); Mean Platelet Volume 12.1 fL (9.4-12.4); Monocytes # (auto) 0.76 K/uL (0.11-0.59); Monocytes % (auto) 6.8 %; Neutrophils # (auto) 9.36 K/uL (1.40-6.50); Neutrophils % (auto) 83.3 %; Platelet Count 130 K/uL (130-400); Red Blood Count 4.11 M/uL (4.20-5.40); White Blood Count 11.23 K/ul (4.8-10.8)
[2025-02-03] MEDS: HEPARIN SOD 5,000 UNIT/0.5 ML VIAL SQ SCH (06:23)
[2025-02-03] MEDS: LEVOTHYROXINE SODIUM 50 MCG TABLET PO SCH (06:23)
[2025-02-03] MEDS: INSULIN ASPART PER UNIT CHARGE SC SCH (06:39)
[2025-02-03 07:36] LABS: Estimated Average Glucose 140 mg/dl; Hemoglobin A1C 6.5 % (4.5-5.6)
[2025-02-03] MEDS: AMPICILLIN/SULBACTAM SOD 3,000 MG/100 ML BAG IV SCH (07:51)
[2025-02-03] MEDS: buPROPion HCl 75 MG TABLET PO SCH (08:03)
[2025-02-03] MEDS: ASPIRIN 81 MG ECTAB PO SCH (08:04)
[2025-02-03] MEDS: PANTOprazole 40 MG TAB PO SCH (08:04)
[2025-02-03] MEDS: ACETAMINOPHEN 500 MG TAB PO PRN (10:27)
--- NOTE | 2025-02-03 13:58 | Communication Note ---
Date of Service: February 03, 2025 Patient was seen and examined at bedside. 69-year-old lady with PMH of HTN, HLD, T2DM on oral meds, hypothyroidism, anxiety/mood disorder, cerebral palsy, urinary retention, ambulatory dysfunction, resident of [facility] since October 2024 was noted to be coughing out white phlegm the day prior to arrival and there was concern for aspiration and brought to the ED. O2 saturation was in 80s upon EMS arrival. She is being managed for the following: Possible aspiration pneumonitis Severe sepsis: Likely secondary to above. WBC plus heart rate elevated at presentation. Acute respiratory failure and acute kidney injury noted at presentation. Acute hypoxemic respiratory failure Patient brought in with concern for aspiration, O2 saturation was in 80s upon EMS arrival. Patient needed up to 6 L of oxygen at ED. Admitting CXR with no acute finding. Follow admitting blood culture, continue with Unasyn /5, add probiotic. Wean down oxygen as tolerated. Speech eval. Acute kidney injury: Admitting creatinine of 1.76, baseline creatinine around 0.9. Likely prerenal, hold lisinopril, continue with IV fluid, trend BMP in AM. Other chronic medical conditions: Continue with/resume home meds as and when able. hypertension, stable hyperlipidemia, on statin Rx DM2 on oral medications, well-controlled as of recent hemoglobin A1c of 5.08 June 2024 hypothyroidism, TSH from last year slightly elevated at 5. TSH this adm wnl anxiety/mood disorder hx cerebral palsy ambulatory dysfunction as per records DVT prophylaxis. Heparin subcu DNR as per directives (POLST form indicates DNR/comfort measures; antibiotic trial acceptable as per document) Text document was generated using [employer] voice recognition software. It may contain grammatical or spelling errors. Kindly contact undersigned for clarification of any documentation item in question. For detailed information on the patient, reported today's is an 8.
[2025-02-03] MEDS: traMADol HCL 50 MG TABLET PO PRN (14:01)
[2025-02-03] MEDS: SODIUM CHLORIDE 0.45 % 1,000 ML IV SCH (14:30)
[2025-02-03] MEDS ORDERED: SERTRALINE HCL 100 MG TABLET PO SCH (21:00)
[2025-02-03] MEDS ORDERED: MIRTAZAPINE TAB 15 MG TAB PO SCH (21:00)
[2025-02-03] MEDS ORDERED: MELATONIN 3 MG TAB PO SCH (21:00)
[2025-02-03] MEDS ORDERED: ATORVASTATIN 40 MG TAB PO SCH (21:00)
--- NOTE | 2025-02-03 22:06 | Electrocardiogram Report ---
Test Reason : Blood Pressure : */* mmHG Vent. Rate : 86 BPM Atrial Rate : 86 BPM P-R Int : 116 ms QRS Dur : 72 ms QT Int : 386 ms P-R-T Axes : 34 32 58 degrees QTcB Int : 461 ms Normal sinus rhythm Normal ECG No previous ECGs available Confirmed by Yoel Bowie ([id number]) on 02/03/2025 10:06:10 PM Referred By: Yanni Hearthside Confirmed By: Yoel Bowie
[2025-02-04] MEDS: MAGNESIUM OXIDE 400 MG TAB PO SCH (08:08)
[2025-02-04] MEDS: CARBOHYDRATES FOR HYPOGLYCEMIA PO PRN (08:25)
[2025-02-04] MEDS: hydrOXYzine HCl 10 MG TAB PO SCH (09:27)
[2025-02-04] MEDS: TAMSULOSIN HCL 0.4 MG CAP PO SCH (09:27)
[2025-02-04] MEDS: ADVANCED PROBIOTIC 625 MG CAPSULE PO SCH (09:27)
[2025-02-04] MEDS ORDERED: PHA DELIRIUM CONSULT PRN (09:59)
[2025-02-04 10:43] LABS: Blood Urea Nitrogen 31 mg/dl (6-23)
[2025-02-04 10:44] LABS: Alanine Aminotransferase 56 U/L (7-52); Albumin Level 3.4 gm/dl (3.4-5.0); Alkaline Phosphatase 68 U/L (34-104); Anion Gap 8 (3-11); Aspartate Aminotransferase 70 U/L (13-39); BUN Creatinine Ratio 28.2 (10-20); Bilirubin,Total 0.4 mg/dl (0.2-1.0); Calcium 8.7 mg/dl (8.6-10.3); Carbon Dioxide 22 mmol/L (21-32); Chloride 113 mmol/L (98-107); Glucose 76 mg/dl (70-99(Fasting)); Magnesium 1.9 mg/dl (1.7-2.4); Phosphorus 3.2 mg/dl (2.5-4.9); Potassium 4.5 mmol/L (3.5-5.1); Sodium 143 mmol/L (136-145); Total Protein 6.6 gm/dl (6.0-8.3)
[2025-02-04 11:50] LABS: A calco-baum cmplx NotReported Not Detected (NotDetected); Bact fragilis Not Reported Not Detected (NotDetected); Blood Culture Id Panel PCR Panel Negative (NotDetected); C auris Not Reported Not Detected (NotDetected); Calbicans Not Reported Not Detected (NotDetected); Candida glabrata Not Reported Not Detected (NotDetected); Candida krusei Not Reported Not Detected (NotDetected); Cneoformans/gatti Not Reported Not Detected (NotDetected); Cparapsilosis Not Reported Not Detected (NotDetected); E cloacae compx Not Reported Not Detected (NotDetected); Efaecalis Not Reported Not Detected (NotDetected); Efaecium Not Reported Not Detected (NotDetected); Enterobacterales Not Reported Not Detected (NotDetected); Escherichia coli Not Reported Not Detected (NotDetected); H influenzae Not Reported Not Detected (NotDetected); K aerogenes Not Reported Not Detected (NotDetected); Koxytoca Not Reported Not Detected (NotDetected); Kpneumoniae grp Not Reported Not Detected (NotDetected); Lmonocyt Not Reported Not Detected (NotDetected); N meningitidis Not Reported Not Detected (NotDetected); P aeruginosa Not Reported Not Detected (NotDetected); Proteus spp Not Reported Not Detected (NotDetected); Salmonella spp Not Reported Not Detected (NotDetected); Staph lugdunensis Not Reported Not Detected (NotDetected); Staph spp. Not Reported Not Detected (NotDetected); Staphaureus Not Reported Not Detected (NotDetected); Staphepi Not Reported Not Detected (NotDetected); Stenmaltophilia Not Reported Not Detected (NotDetected); Strep agal(GrpB) Not Reported Not Detected (NotDetected); Strep pneum Not Reported Not Detected (NotDetected); Strep pyog (GrpA) Not Reported Not Detected (NotDetected); Strep spp Not Reported Not Detected (NotDetected)
[2025-02-04 12:31] LABS: Hematocrit (blood only) 33.5 % (37.0-47.0); Hemoglobin 10.3 g/dl (12.0-16.0); Mean Corpuscular Hemoglobin 26.8 pg (25.0-34.0); Mean Corpuscular Hgb Conc 30.7 g/dL (32.0-36.0); Mean Platelet Volume 10.8 fL (9.4-12.4); Platelet Count 129 K/uL (130-400); RDW Coefficient of Variation 14.9 % (11.5-14.5); RDW Standard Deviation 47.6 fL (36.4-46.3); Red Blood Count 3.85 M/uL (4.20-5.40); White Blood Count 5.75 K/ul (4.8-10.8)
[2025-02-04] MEDS: cefTRIAXone SODIUM 2,000 MG/50 ML BAG IV SCH (13:21)
--- NOTE | 2025-02-04 13:29 | Hospitalist Progress Note ---
Date of Service February 04, 2025 Assessment & Plan (1) Sepsis: Plan 69-year-old lady with PMH of HTN, HLD, T2DM on oral meds, hypothyroidism, anxiety/mood disorder, cerebral palsy, urinary retention, ambulatory dysfunction, resident of [facility] since October 2024 was noted to be coughing out white phlegm the day prior to arrival and there was concern for aspiration and brought to the ED. O2 saturation was in 80s upon EMS arrival. She is being managed for the following: Possible aspiration pneumonitis Severe sepsis: Likely secondary to above. WBC plus heart rate elevated at presentation. Acute respiratory failure and acute kidney injury noted at presentation. Acute hypoxemic respiratory failure Gram neg bacteremia Patient brought in with concern for aspiration, O2 saturation was in 80s upon EMS arrival. Patient needed up to 6 L of oxygen at ED. Admitting CXR with no acute finding. 02/03 blood culture - gnb +ve on 11/04 bottles, Unasyn 02/03 switched to rocephin 02/04, c/w probiotic. ID consult. Wean down oxygen as tolerated. Speech eval - appreciate recs. Acute kidney injury: Admitting creatinine of 1.76, baseline creatinine around 0.9. Likely prerenal, s/p IV fluid, Cr improved. Resume home lisinopril after jason AM labs. Other chronic medical conditions: Continue with/resume home meds as and when able. hypertension, stable hyperlipidemia, on statin Rx DM2 on oral medications, well-controlled as of recent hemoglobin A1c of 5.08 June 2024 hypothyroidism, TSH from last year slightly elevated at 5. TSH this adm wnl anxiety/mood disorder hx cerebral palsy ambulatory dysfunction as per records DVT prophylaxis. Heparin subcu DNR as per directives (POLST form indicates DNR/comfort measures; antibiotic trial acceptable as per document) Pt's MOO Salcedo updated on above findings over the phone 02/04, answered all her questions. Text document was generated using ShopReply voice recognition software. It may contain grammatical or spelling errors. Kindly contact undersigned for clarification of any documentation item in question. Admission and Anticipated Discharge Date Admission Date: February 03, 2025 Subjective Patient was seen and examined at bedside. Patient was lying in bed, on 1 L oxygen via nasal cannula, NAD. Patient reports chronic bilateral lower leg pain, per RN has poor appetite and no new acute event overnight. Patient's daughter appears chronically ill/lethargic. Physical Exam Physical Exam: GENERAL: Alert awake, appears chronically ill/sick/lethargic, on 1 L NC O2 SKIN: Normal color, warm HEENT: [place] palpebral conjunctivae, no ptosis, moist buccal mucosa, nasal cannula in place NECK : Supple, no tenderness CHEST : Decreased breath sounds, b/b crackles, no tenderness HEART : RRR, no obvious murmurs ABDOMEN: Some distention, nontender EXTREMITIES : Chronic UE contractures, minimal LE swelling without tenderness, palpable pulses NEUROLOGIC : lateral deviation left eye (? chronicity), no facial asymmetry, gait and stance not assessed UC w/ light yellow urine in bag. Results & Data Results & Data Vital Signs (Past 12 Hours) Vital Signs Temp Pulse Pulse Resp BP Pulse Ox O2 Del Method 02/04/25 11:14 37.1 C 88 16 152/74 H 97 Nasal Cannula 02/04/25 08:12 36.9 C 85 17 144/80 H 96 Nasal Cannula 02/04/25 08:00 Nasal Cannula 02/04/25 07:17 80 02/04/25 04:00 37.0 C 89 18 129/68 96 Nasal Cannula O2 Flow Rate 02/04/25 11:14 1 02/04/25 08:12 1 02/04/25 08:00 1 02/04/25 07:17 02/04/25 04:00 1
[2025-02-05] MEDS: MELATONIN 3 MG TAB PO PRN (01:44)
[2025-02-05 10:13] LABS: Hematocrit (blood only) 35.4 % (37.0-47.0); Hemoglobin 10.9 g/dl (12.0-16.0); Mean Corpuscular Hemoglobin 26.4 pg (25.0-34.0); Mean Corpuscular Hgb Conc 30.8 g/dL (32.0-36.0); Mean Corpuscular Volume 85.7 fL (80.0-100.0); Mean Platelet Volume 11.5 fL (9.4-12.4); Platelet Count 141 K/uL (130-400); RDW Coefficient of Variation 14.8 % (11.5-14.5); RDW Standard Deviation 46.5 fL (36.4-46.3); Red Blood Count 4.13 M/uL (4.20-5.40); White Blood Count 6.24 K/ul (4.8-10.8)
[2025-02-05 10:29] LABS: Anion Gap 7 (3-11); BUN Creatinine Ratio 20.6 (10-20); Blood Urea Nitrogen 22 mg/dl (6-23); Calcium 8.8 mg/dl (8.6-10.3); Carbon Dioxide 23 mmol/L (21-32); Chloride 110 mmol/L (98-107); Glucose 189 mg/dl (70-99(Fasting)); Magnesium 1.6 mg/dl (1.7-2.4); Phosphorus 3.2 mg/dl (2.5-4.9); Potassium 3.9 mmol/L (3.5-5.1); Sodium 140 mmol/L (136-145)
--- NOTE | 2025-02-05 15:07 | Hospitalist Progress Note ---
Date of Service February 05, 2025 Assessment & Plan (1) Sepsis: Plan 69-year-old lady with PMH of HTN, HLD, T2DM on oral meds, hypothyroidism, anxiety/mood disorder, cerebral palsy, urinary retention, ambulatory dysfunction, resident of [facility] since October 2024 was noted to be coughing out white phlegm the day prior to arrival and there was concern for aspiration and brought to the ED. O2 saturation was in 80s upon EMS arrival. She is being managed for the following: Possible aspiration pneumonitis Severe sepsis: Likely secondary to above. WBC plus heart rate elevated at presentation. Acute respiratory failure and acute kidney injury noted at presentation. Acute hypoxemic respiratory failure Gram neg bacteremia Patient brought in with concern for aspiration, O2 saturation was in 80s upon EMS arrival. Patient needed up to 6 L of oxygen at ED. Admitting CXR with no acute finding. 02/03 blood culture - gnb +ve on 11/04 bottles, Unasyn 02/03 switched to rocephin 02/04, c/w probiotic. ID consult. Wean down oxygen as tolerated. Speech eval - appreciate recs. Acute kidney injury: Admitting creatinine of 1.76, baseline creatinine around 0.9. Likely prerenal, s/p IV fluid, Cr improved. Resume home lisinopril after jason AM labs. Other chronic medical conditions: Continue with/resume home meds as and when able. hypertension, stable hyperlipidemia, on statin Rx DM2 on oral medications, well-controlled as of recent hemoglobin A1c of 5.08 June 2024 hypothyroidism, TSH from last year slightly elevated at 5. TSH this adm wnl anxiety/mood disorder - resume home meds gradually hx cerebral palsy ambulatory dysfunction as per records DVT prophylaxis. Heparin subcu DNR as per directives (POLST form indicates DNR/comfort measures; antibiotic trial acceptable as per document) Pt's MOO Salcedo updated on above findings over the phone 02/04, answered all her questions. Text document was generated using Xsigo voice recognition software. It may contain grammatical or spelling errors. Kindly contact undersigned for clarification of any documentation item in question. Admission and Anticipated Discharge Date Admission Date: February 03, 2025 Subjective Patient was seen and examined at bedside. Patient was lying in bed, on RA, NAD. Patient reports chronic bilateral lower leg pain under control w/ tramadol, per RN has poor appetite and no new acute event overnight. Patient appears chronically ill/weak/frail Physical Exam Physical Exam: GENERAL: Alert awake, appears chronically ill/sick/lethargic, on RA SKIN: Normal color, warm HEENT: [place] palpebral conjunctivae, no ptosis, moist buccal mucosa, nasal cannula in place NECK : Supple, no tenderness CHEST : Decreased breath sounds, b/b crackles, no tenderness HEART : RRR, no obvious murmurs ABDOMEN: Some distention, nontender EXTREMITIES : Chronic UE contractures, minimal LE swelling without tenderness, palpable pulses NEUROLOGIC : lateral deviation left eye (? chronicity), no facial asymmetry, gait and stance not assessed UC w/ light yellow urine in bag. Results & Data Results & Data Vital Signs (Past 12 Hours) Vital Signs Temp Pulse Pulse Resp BP BP Pulse Ox 02/05/25 11:21 36.6 C 75 20 114/69 93 02/05/25 08:32 02/05/25 07:44 36.5 C 74 18 128/69 94 02/05/25 07:25 58 L 02/05/25 03:31 36.8 C 69 18 120/61 96 O2 Del Method 02/05/25 11:21 Room Air 02/05/25 08:32 Room Air 02/05/25 07:44 Room Air 02/05/25 07:25 02/05/25 03:31 Room Air
[2025-02-05] MEDS: MAGNESIUM SULFATE / D5W 1 GM/100 ML BAG IV ONE (15:21)
--- NOTE | 2025-02-05 15:30 | Infectious Disease Consult ---
Date of Service February 05, 2025 Telehealth Information I performed this visit using a real-time telehealth connection between my location and the patients location ([facility]). After connecting through interactive tele-video, patient was identified by name and date of and/or wristband check.Patient (or authorized healthcare health and safety representative) was informed that this was a telemedicine visit and it was being conducted confidentially over secure lines. My office door was closed and no one else was present in the room with me.Patient (or authorized healthcare health and safety representative) provided consent to proceed with the visit, expressed an understanding of privacy and security of the telemedicine visit, and gave permission to have a hospital health and safety representative in the room in order to assist with the visit and to conduct portions of the visit, as needed. I informed the patient (or authorized healthcare health and safety representative) that I reviewed their record and presented the opportunity for them to ask any questions regarding the visit today. The patient agreed to participate. Assessment & Plan (1) Aspiration into respiratory tract: Plan: Clinically this appears to be resolved. Her CXR shows no significant pneumonia and her WBC and respiratory deficits are back to normal. (2) Positive blood culture: Plan: Culture with Paenibacillus pabuli. This is likely not clinically relevant. The significance is not entirely clear, but it is probably a contaminant. No clear link with any infectious etiology in her case can be identified. I would favor stopping her ceftriaxone and observing off any antibiotic therapy. History of Present Illness History of Present Illness Ms. Soares is a 69yo female with ah/o DM and cerebral palsy. She is bedbound at baseline. She was brought to the ED at [facility] on 02/02/25 due to new onset cough and hypoxia. She was satting in the 80's on RA at presentation. She was thought to have possibly aspirated and was started on Zosyn, followed by Unasyn, followed by Ceftriaxone. Today she feels markedly better. She reports feeling back to baseline and wants to go home. No fevers. She ia back on room air with normal oxygen saturations. No N/V or diarrhea, but she does complain of poor appetite. No recent sick contacts. No rash. Allergies Allergy/AdvReac Type Severity Reaction Status Date / Time banana Allergy Unknown ON Verified 02/03/25 00:25 OF [facility] MED LIST metformin Allergy Unknown ON EMBASSY Verified 02/03/25 00:25 OF [facility] MED LIST Sulfa (Sulfonamide Allergy Unknown ON EMBASSY Verified 02/03/25 00:25 Antibiotics) OF [facility] Home Medications Medication Instructions Recorded Confirmed Type acetaminophen 325 mg tablet 650 mg PO Q4H PRN TEMP >101F 02/03/25 02/03/25 History (Tylenol) acetaminophen 325 mg tablet 650 mg PO Q6H PRN Pain (Scale 02/03/25 02/03/25 History (Tylenol) Score 1-3) aspirin 81 mg tablet,delayed 81 mg PO [facility] 02/03/25 02/03/25 History release atorvastatin 40 mg tablet 40 mg PO HS 02/03/25 02/03/25 History baclofen 10 mg tablet 10 mg PO .BID @ 1200 & 2000 02/03/25 02/03/25 History baclofen 10 mg tablet 20 mg PO [facility] 02/03/25 02/03/25 History bupropion HCl 75 mg tablet 75 mg PO [facility] 02/03/25 02/03/25 History cholecalciferol (vitamin D3) 25 50 mcg PO DAILY 02/03/25 02/03/25 History mcg (1,000 unit) capsule (Vitamin D3) hydroxyzine HCl 10 mg tablet 10 mg PO [facility] 02/03/25 02/03/25 History levothyroxine 50 mcg tablet 50 mcg PO DAILYBB 02/03/25 02/03/25 History lisinopril 5 mg tablet 5 mg PO [facility] 02/03/25 02/03/25 History magnesium oxide 400 mg PO [facility] 02/03/25 02/03/25 History melatonin 3 mg tablet 3 mg PO 02/03/25 02/03/25 History mirtazapine 7.5 mg tablet 7.5 mg PO 02/03/25 02/03/25 History omeprazole 20 mg tablet,delayed 20 mg PO QA 02/03/25 02/03/25 History release polyethylene glycol 3350 17 17 g PO DAILY PRN Constipation 02/03/25 02/03/25 History gram/dose oral powder (Miralax) sertraline 100 mg tablet (Zoloft) 200 mg PO HS 02/03/25 02/03/25 History tamsulosin 0.4 mg capsule (Flomax) 0.4 mg PO [facility] 02/03/25 02/03/25 History tramadol 50 mg tablet 50 mg PO Q6H PRN Pain (Scale Score 02/03/25 02/03/25 History 4-10) Patient History Social History Smoking Status: Unknown if ever smoked Hx Alcohol Use: No (UNKNOWN) Hx Substance Use: No (UNKNOWN) Preferred Language: Yoruba Communication Ability: Effective 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 Beliefs That Will Affect Care: None Current Living Situation: Alf Feels Safe at Home: Yes Safety Concerns: Feels Safe At This Time Review of Systems Gen No fevers or chills HEENT No MCCLOUD or sore throat Resp No cough or SOB at this time CV No chest pain GI No N/V or diarrhea, but has a poor appetite no dysuria Ext No edema Derm No rashes Neuro +cerebral palsy, bedbound at baseline Physical Exam Gen NAD, cooperative with exam HEENT NC AT, + CN deficits Resp Normal respirations on RA Derm No rash Ext No edema Results & Data Vital Signs (Past 12 Hours) Vital Signs Temp Pulse Pulse Resp BP BP Pulse Ox 02/05/25 11:21 36.6 C 75 20 114/69 93 02/05/25 08:32 02/05/25 07:44 36.5 C 74 18 128/69 94 02/05/25 07:25 58 L 02/05/25 03:31 36.8 C 69 18 120/61 96 O2 Del Method 02/05/25 11:21 Room Air 02/05/25 08:32 Room Air 02/05/25 07:44 Room Air 02/05/25 07:25 02/05/25 03:31 Room Air Laboratory Results WBC 12.05 -> 11.23 Hgb 10.9 Platelets 141 Creatinine 1.07 BUN 22 UA with 0-2 WBC, 0-2 RBC Diagnostic Findings CXR from 02/02/25 with no obvious infiltrates RVP negative Urine culture contaminated Blood cultures 1/4 bottles positive Paenibacillus pabuli (1) Aspiration into respiratory tract Encounter type: initial encounter Qualified Code(s): T17.908A - Unspecified foreign body in respiratory tract, part unspecified causing other injury, initial encounter
[2025-02-05] MEDS: DOCUSATE SODIUM 100 MG CAP PO SCH (20:43)
[2025-02-05] MEDS: SERTRALINE HCL 100 MG TABLET PO SCH (22:29)
[2025-02-06 06:34] LABS: Hematocrit (blood only) 32.4 % (37.0-47.0); Hemoglobin 10.2 g/dl (12.0-16.0); Mean Corpuscular Hemoglobin 27.2 pg (25.0-34.0); Mean Corpuscular Hgb Conc 31.5 g/dL (32.0-36.0); Mean Corpuscular Volume 86.4 fL (80.0-100.0); Mean Platelet Volume 11.8 fL (9.4-12.4); Platelet Count 114 K/uL (130-400); RDW Coefficient of Variation 14.7 % (11.5-14.5); RDW Standard Deviation 46.9 fL (36.4-46.3); Red Blood Count 3.75 M/uL (4.20-5.40)
[2025-02-06 07:08] LABS: Anion Gap 7 (3-11); BUN Creatinine Ratio 21.1 (10-20); Blood Urea Nitrogen 20 mg/dl (6-23); Calcium 8.8 mg/dl (8.6-10.3); Carbon Dioxide 26 mmol/L (21-32); Chloride 110 mmol/L (98-107); Glucose 105 mg/dl (70-99(Fasting)); Magnesium 1.9 mg/dl (1.7-2.4); Phosphorus 3.6 mg/dl (2.5-4.9); Potassium 3.9 mmol/L (3.5-5.1); Sodium 143 mmol/L (136-145)
[2025-02-06] MEDS: lisinopril 5 MG TAB PO SCH (08:32)
--- NOTE | 2025-02-06 14:46 | Discharge Summary ---
Date of Service February 06, 2025 Admission HPI Per Admitting Provider History obtained from patient and records. Limited history from patient secondary to disorientation. Medical history significant for hypertension, hyperlipidemia, DM2 on oral medications, hypothyroidism, anxiety/mood disorder, cerebral palsy, urinary retention, ambulatory dysfunction as per records. Patient admitted at [facility] from August 30 to September 04, 2024 for traumatic left patellar/tibia fracture and UTI. [facility] discharged [facility] prior to admission at [facility] last October 2024. Return to patient's home deemed unsafe due to disability. Patient also has cerebral palsy as per report. Patient found to be coughing out white phlegm yesterday. Concern for aspiration as per skilled nursing staff. O2 sats 80s upon EMS arrival. Patient noted to have noisy respiration. Multiple suctioning attempts prior to ED transport. Zosyn administered at the ER. Patient unable to reply to questions regarding chest pain, SOB, abdominal pain. Medical History as above Surgical History : BTL, leg surgeries Family History : Heart disease, brain tumor Personal/Social history : Non-smoker, no EtOH intake, skilled nursing resident Admission Exam Per Admitting Provider GENERAL: Disoriented, no respiratory distress SKIN: Normal color, warm HEENT: [place] palpebral conjunctivae, no ptosis, dry buccal mucosa, nasal cannula in place NECK : Supple, no tenderness CHEST : Decreased breath sounds, scattered expiratory wheezes, no tenderness HEART : RRR, no obvious murmurs ABDOMEN: Some distention, nontender EXTREMITIES : Chronic UE contractures, minimal LE swelling without tenderness, palpable pulses NEUROLOGIC : Disoriented, lateral deviation left eye (? chronicity), no facial asymmetry, gait and stance not assessed Principal Diagnosis Possible aspiration pneumonitis Acute hypoxemic respiratory failure Gram neg bacteremia, ruled out Acute kidney injury Discharge Exam GENERAL: Alert awake, appears chronically ill/sick/lethargic, on RA SKIN: Normal color, warm HEENT: [place] palpebral conjunctivae, no ptosis, moist buccal mucosa, nasal cannula in place NECK : Supple, no tenderness CHEST : Decreased breath sounds, b/b crackles, no tenderness HEART : RRR, no obvious murmurs ABDOMEN: Some distention, nontender EXTREMITIES : Chronic UE contractures, minimal LE swelling without tenderness, palpable pulses NEUROLOGIC : lateral deviation left eye (? chronicity), no facial asymmetry, gait and stance not assessed UC w/ light yellow urine in bag. Discharge Data Allergies Allergy/AdvReac Type Severity Reaction Status Date / Time banana Allergy Unknown ON EMBASSY Verified 02/03/25 00:25 OF [facility] L[facility] metformin Allergy Unknown ON EMBASSY Verified 02/03/25 00:25 OF [facility] Sulfa (Sulfonamide Allergy Unknown ON EMBASSY Verified 02/03/25 00:25 Antibiotics) OF [facility] MED LIST Consultations 02/03/25 00:47 ED Decision to Admit Stat 02/04/25 13:21 Consult Infectious Diseases Routine Hospital Course (1) Sepsis: Plan 69-year-old lady with PMH of HTN, HLD, T2DM on oral meds, hypothyroidism, anxiety/mood disorder, cerebral palsy, urinary retention, ambulatory dysfunction, resident of [facility] since October 2024 was noted to be coughing out white phlegm the day prior to arrival and there was concern for aspiration and brought to the ED. O2 saturation was in 80s upon EMS arrival. She was managed for the following: Possible aspiration pneumonitis Severe sepsis: Likely secondary to above. WBC plus heart rate elevated at presentation. Acute respiratory failure and acute kidney injury noted at presentation. Acute hypoxemic respiratory failure Gram neg bacteremia Patient brought in with concern for aspiration, O2 saturation was in 80s upon EMS arrival. Patient needed up to 6 L of oxygen at ED. Admitting CXR with no acute finding. 02/03 blood culture - gnb +ve on 11/04 bottles, Unasyn 02/03 switched to rocephin 02/04, c/w probiotic. ID evaled 02/05, no antibiotic is recommended. Bl Cx likely contaminant. Wean down oxygen as tolerated. Speech eval - appreciate recs. Acute kidney injury: Admitting creatinine of 1.76, baseline creatinine around 0.9. Likely prerenal, s/p IV fluid, Cr improved. c/w home meds. Other chronic medical conditions: Continue with/resume home meds as and when able. hypertension, stable hyperlipidemia, on statin Rx DM2 on oral medications, well-controlled as of recent hemoglobin A1c of 5.08 June 2024 hypothyroidism, TSH from last year slightly elevated at 5. TSH this adm wnl anxiety/mood disorder - resume home meds gradually hx cerebral palsy ambulatory dysfunction as per records DVT prophylaxis. Heparin subcu DNR as per directives (POLST form indicates DNR/comfort measures; antibiotic trial acceptable as per document) Pt's MOO Salcedo updated on above findings over the phone 02/04, answered all her questions. Patient is being discharged to nursing facility with following instruction at the point of discharge: Follow-up with your primary care physician within a week time and likely you will need labs CBC/CMP/magnesium/phosphorus. You were evaluated for aspiration pneumonia, infection has been ruled out, ID physician evaluated you, antibiotic has been stopped. You are also noted to have acute kidney injury which has resolved. Take your medications as prescribed. Please make sure that you are able to get your medications today by calling your pharmacy before you leave the hospital so that your treatment continuity is not broken. Text document was generated using Mediastream voice recognition software. It may contain grammatical or spelling errors. Kindly contact undersigned for clarification of any documentation item in question. Home Health Attestation I certify that this patient is under my care and that I, or a physicians executive staff assistant working with me, had a face to-face encounter that meets the home health [id number] encounter requirements with this patient. The encounter with the patient was in whole, or in part, for the following medical condition, which is the primary reason for home health care (list medical condition): I certify that, based on my findings, the following services are medically necessary home health services: My clinical findings support the need for the above services because: Further, I certify that my clinical findings support that this patient is homebound (i.e. absences from home require considerable and taxing effort and are for medical reasons or zoroastrian services or infrequently or of short duration when for other reasons) because: Certification for Home Health Services: Based on the above findings, I certify that this patient is confined to the home and needs intermittent intermediate care, physical therapy and/or speech therapy or continues to need occupational therapy. The patient is under my care, and I have initiated the establishment of the plan of care. This patient will be followed by a physician who will periodically review the plan of care. Total Time Total Time Spent Total Time Spent (In Minutes): 35 Discharge Plan Discharge Items Patient Disposition: Transfer [facility] Reason For Visit: SEPSIS Discharge Diagnosis: Possible aspiration pneumonitis Acute hypoxemic respiratory failure Gram neg bacteremia, ruled out Acute kidney injury Activity: Resume your previous activity Non-emergency contact: Primary Care Provider Call non-emergency contact if: you have any medication questions and your symptoms worsen Follow-up/Referrals: Ced Ashby, [Primary Care Provider] - Diet: Carb Consistent or DM2 and Heart Healthy Addtl Attending Provider Instructions: Follow-up with your primary care physician within a week time and likely you will need labs CBC/CMP/magnesium/phosphorus. You were evaluated for aspiration pneumonia, infection has been ruled out, ID physician evaluated you, antibiotic has been stopped. You are also noted to have acute kidney injury which has resolved. Take your medications as prescribed. Please make sure that you are able to get your medications today by calling your pharmacy before you leave the hospital so that your treatment continuity is not broken. Pending Studies at Discharge: Yes Stand-Alone Forms: My [facility] Skilled Items Patient informed of condition?: Yes DNR: Yes Discharge Level of Care: Skilled Communicable Disease: No Discharge Prognosis: Stable Lines: None Urinary Catheter: No Medications and DC Order Prescriptions: Continued atorvastatin 40 mg Tablet 40 mg PO HS acetaminophen [Tylenol] 325 mg Tablet 650 mg PO Q4H MDD 3 GRAMS/24 HOURS PRN (Reason: TEMP >101F) acetaminophen [Tylenol] 325 mg Tablet 650 mg PO Q6H MDD 3 GRAMS/24 HOURS PRN (Reason: Pain (Scale Score 1-3)) sertraline [Zoloft] 100 mg Tablet 200 mg PO HS melatonin 3 mg Tablet 3 mg PO HS aspirin 81 mg Tablet,Delayed Release (Dr/Ec) 81 mg PO QAM tramadol 50 mg Tablet 50 mg PO Q6H PRN (Reason: Pain (Scale Score 4-10)) tamsulosin [Flomax] 0.4 mg Capsule 0.4 mg PO QAM baclofen 10 mg Tablet 20 mg PO QAM baclofen 10 mg Tablet 10 mg PO .BID @ 1200 & 2000 levothyroxine 50 mcg Tablet 50 mcg PO DAILYBB bupropion HCl [Wellbutrin] 75 mg Tablet 75 mg PO QAM Rx Instructions: STARTED 01/30/25 FOR 7 DAYS, ENDS AFTER 02/04/25 DOSE. lisinopril 5 mg Tablet 5 mg PO QAM polyethylene glycol 3350 [Miralax] 17 gram/dose Powder 17 g PO DAILY PRN (Reason: Constipation) hydroxyzine HCl 10 mg Tablet 10 mg PO QAM cholecalciferol (vitamin D3) [Vitamin D3] 25 mcg (1,000 unit) Capsule 50 mcg PO DAILY mirtazapine 7.5 mg Tablet 7.5 mg PO HS omeprazole 20 mg Tablet,Delayed Release (Dr/Ec) 20 mg PO QAM magnesium oxide 400 mg magnesium Tablet 400 mg PO QAM Discharge Orders: Discharge Order (Routine); Ordered 02/06/25 Ordered By: Key Clarke Admission Data Admit Date/Time: 02/03/25 01:45 Attending Provider: Key Clarke Admit Provider: Gucci Mullen Primary Care Provider: Ced Ashby Other Providers: Gucci Mullen; Dawson Higgins; Christie,; Kvng Machuca; Anabella Cunningham; Sam Ordonez I.; Yobany Fang II; Brittny Madsen; Zane Ortez; Julio Velásquez; Lara Cardoza; Deon Pryor; Shivani Padilla; Agustina Watson
== END 2025-02-06 16:41 | DRG 871 ==
LOC: ED 22:02 → 2N 02-03 01:45